=== PATIENT | male | born 1930 | race Caucasian/White ===

== ENCOUNTER 2017-01-14 15:58 | Emergency (ER) | payer OTHER, MEDICARE ==
[2017-01-14 16:09] VITALS: BP 118/52
--- NOTE | 2017-01-14 16:38 | EDM.PDOC ---
ED HPI Skin/Rash - General Chief Complaint: ENT Problem Stated Complaint: RT EAR, STITCHES OUT Time Seen by Provider: 01/14/17 16:15 Source: Reports: Patient, RN, RN notes reviewed History Limitations: Reports: No limitations - History of Present Illness INITIAL COMMENTS - FREE TEXT/NARRATIVE: Patient had skin biopsy yesterday at [facility]. Today after dialysis patient took a nap and woke up with blood all over his face. Denies pain. Symptom Onset Date: 01/14/17 Timing: Reports: still present Location, Skin: Reports: face Severity: mild Known Identified Source: yes Place of Occurrence: home Sick Contact: no Associated Symptoms: Reports: no other symptoms Similar Symptoms Previously: no Recent Medical Care: yes - Related Data Allergies Allergy/AdvReac Type Severity Reaction Status Date / Time No Known Allergies Allergy Verified 01/07/17 23:53 Home Meds: Ambulatory Orders Medication Instructions Recorded Confirmed glipiZIDE [Glucotrol] 5 mg PO BID 07/22/14 01/08/17 Docusate Sodium [Colace] 100 mg PO DAILY 04/15/16 01/08/17 Metoprolol Succinate [Toprol XL 25 mg PO BID 04/15/16 01/08/17 100mg] Tamsulosin [Flomax] 0.4 mg PO DAILY 04/15/16 01/08/17 atorvaSTATin [Lipitor] 20 mg PO BEDTIME 04/15/16 01/08/17 Aspirin [Ecotrin] 81 mg PO DAILY 01/08/17 01/08/17 Furosemide 80 mg PO TID 01/08/17 01/08/17 Sevelamer Carbonate [Renvela] 400 mg PO TIDMEALS 01/08/17 01/08/17 amLODIPine Besylate [Amlodipine 10 mg PO DAILY 01/08/17 01/08/17 Besylate] Past Medical History HEENT History: Reports: Impaired vision Cardiovascular History: Reports: CAD, High cholesterol, Hypertension, PVD Respiratory History: Reports: COPD Genitourinary History: Reports: BPH, Dialysis Endocrine/Metabolic History: Reports: Diabetes, type II, Obesity/BMI 30+ - Infectious Disease History Infectious Disease History: Reports: None - Past Surgical History HEENT Surgical History: Reports: Tonsillectomy Social & Family History - Family History Family Medical History: Noncontributory - Tobacco Use Smoking Status *Q: Former Smoker Years of Tobacco use: 60 Packs/Tins Daily: 0.2 Used Tobacco, but Quit: No Month Tobacco Last Used: october 2016 Second Hand Smoke Exposure: No - Caffeine Use Caffeine Use: Reports: Coffee - Recreational Drug Use Recreational Drug Use: No - Living Situation & Occupation Living situation: Reports: with family Occupation: retired ED ROS GENERAL - Review of Systems Review Of Systems: ROS reveals no pertinent complaints other than HPI. ED EXAM, SKIN/RASH Exam: See Below Exam Limited By: No limitations General Appearance: alert, WD/WN, no apparent distress Eye Exam: bilateral eye: normal inspection Ears: other (1cm surgical incisoin at right pre-auricular face with intact sutures x3. Dried blood. No active bleeding.) Nose: normal inspection, normal mucosa, no blood Throat/Mouth: Normal inspection, Normal lips, Normal teeth, Normal gums, Normal oropharynx, Normal voice, No airway compromise Head: atraumatic Neck: normal inspection, supple, non-tender, full range of motion Respiratory/Chest: no respiratory distress Cardiovascular: normal peripheral pulses, regular rate, rhythm, no edema, no gallop, no JVD, no murmur, no rub Neurological: alert, oriented, CN II-XII intact, normal cognition, normal gait, normal reflexes, no motor/sensory deficits Psychiatric: normal affect, normal mood Course - Vital Signs Last Recorded V/S: Last Vital Signs Temp 36.4 C 01/14/17 16:08 Pulse 78 01/14/17 16:08 Resp 16 01/14/17 16:08 BP 118/52 L 01/14/17 16:08 Pulse Ox 99 01/14/17 16:08 - Re-Assessments/Exams Free Text/Narrative Re-Assessment/Exam: 01/14/17 16:42 The nurse cleansed the wound area and cleansed away the dried blood and then applied a new dressing. The patient's right upper chest CV port dressing was also draining with blood and it was replaced as well. Departure - Departure Time of Disposition: 16:37 Disposition: Home, Self-Care 01 Condition: good Clinical Impression: Postoperative bleeding from incision Instructions: Sutured Wound Care Referrals: Junior Luis MD [Primary Care Provider] - Forms: ED Department Discharge Additional Instructions: Follow your discharge instructions given by your surgeon. Apply firm pressure to site if bleeding returns. Follow up with your surgeon if any further problems.
== END 2017-01-14 16:46 | disposition home or self-care (01) ==
LOC: DL.ED 15:58
DX: L76.22 Postprocedural hemorrhage of skin and subcutaneous tissue following other procedure (principal); I25.10 Atherosclerotic heart disease of native coronary artery without angina pectoris; E78.00 Pure hypercholesterolemia, unspecified; I10 Essential (primary) hypertension; J44.9 Chronic obstructive pulmonary disease, unspecified; E11.9 Type 2 diabetes mellitus without complications; E66.9 Obesity, unspecified; Z98.890 Other specified postprocedural states; Z87.891 Personal history of nicotine dependence
CPT/HCPCS: 99282

== ENCOUNTER 2017-08-11 06:27 | Emergency (ER) | payer MEDICARE ==
[2017-08-11] MEDS ORDERED: Lidocaine 1% 30 ML SDV INJECT ONE (06:38)
[2017-08-11 06:39] VITALS: BP 109/87
[2017-08-11] MEDS ORDERED: Diphtheria,Pertussis(Acell),Tetanus Vaccine 0.5 ML SDV IM ONE (06:43)
[2017-08-11] MEDS ORDERED: Ciprofloxacin 500 MG Tab PO ONE (06:44)
--- NOTE | 2017-08-11 06:44 | EDM.PDOC ---
ED HPI GENERAL MEDICAL PROBLEM - General Chief Complaint: Lower Extremity Injury/Pain Stated Complaint: STEPPED ON FISHING HOOK Time Seen by Provider: 08/11/17 06:37 Source of Information: Reports: Patient History Limitations: Reports: No Limitations - History of Present Illness INITIAL COMMENTS - FREE TEXT/NARRATIVE: 86 yo white male /o fish hook in right foot unknown how it happened. PMHx. 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) Severity: Mild Improves with: Reports: None Worsens with: Reports: None Context: Reports: Activity Associated Symptoms: Reports: No Other Symptoms - Related Data Allergies Allergy/AdvReac Type Severity Reaction Status Date / Time No Known Allergies Allergy Verified 08/11/17 06:31 Home Meds: Home Meds glipiZIDE [Glucotrol] 5 mg PO BID 07/22/14 [History] Docusate Sodium [Colace] 100 mg PO DAILY 04/15/16 [History] Metoprolol Succinate [Toprol XL 100mg] 25 mg PO BID 04/15/16 [History] Tamsulosin [Flomax] 0.4 mg PO DAILY 04/15/16 [History] atorvaSTATin [Lipitor] 20 mg PO BEDTIME 04/15/16 [History] Aspirin [Ecotrin] 81 mg PO DAILY 01/08/17 [History] Furosemide 80 mg PO TID 01/08/17 [History] Sevelamer Carbonate [Renvela] 400 mg PO TIDMEALS 01/08/17 [History] amLODIPine Besylate [Amlodipine Besylate] 10 mg PO DAILY 01/08/17 [History] Past Medical History HEENT History: Reports: Impaired Vision Cardiovascular History: Reports: CAD, High Cholesterol, Hypertension, PVD Respiratory History: Reports: COPD Genitourinary History: Reports: BPH, Dialysis Endocrine/Metabolic History: Reports: Diabetes, Type II, Obesity/BMI 30+ - Infectious Disease History Infectious Disease History: Reports: None - Past Surgical History HEENT Surgical History: Reports: Tonsillectomy Social & Family History - Family History Family Medical History: Noncontributory - Tobacco Use Smoking Status *Q: Former Smoker Years of Tobacco use: 60 Packs/Tins Daily: 0.2 Used Tobacco, but Quit: No Month Tobacco Last Used: october 2016 Second Hand Smoke Exposure: No - Caffeine Use Caffeine Use: Reports: Coffee - Recreational Drug Use Recreational Drug Use: No - Living Situation & Occupation Living situation: Reports: with Family Occupation: Retired Review of Systems - Review of Systems Review Of Systems: See Below Constitutional: Reports: No Symptoms Eyes: Reports: No Symptoms Ears: Reports: No Symptoms Nose: Reports: No Symptoms Mouth/Throat: Reports: No Symptoms Respiratory: Reports: No Symptoms Cardiovascular: Reports: No Symptoms GI/Abdominal: Reports: No Symptoms Genitourinary: Reports: No Symptoms Skin: Reports: Other (fishhook in right plantar surface of foot) Neurological: Reports: Numbness (right foot) Psychiatric: Reports: No Symptoms ED EXAM, GENERAL - Physical Exam Exam: See Below Exam Limited By: No Limitations General Appearance: Alert, No Apparent Distress Eye Exam: Bilateral Eye: EOMI, PERRL Respiratory/Chest: No Respiratory Distress Cardiovascular: Normal Peripheral Pulses Peripheral Pulses: 1+: Dorsalis Pedis (L), Dorsalis Pedis (R) GI/Abdominal: Normal Bowel Sounds Back Exam: Normal Inspection Extremities: Normal Inspection, Normal Range of Motion Neurological: Alert, Oriented, CN II-XII Intact Psychiatric: Normal Affect Skin Exam: Other (fish hook in right plantar surface foot) Lymphatic: No Adenopathy ED TRAUMA EXTREMITY PROCEDURES - Foreign Body Removal Indication:: Fish hook to right foot Consent Obtained: Patient Performing Doctor:: Rolan Beavers Anesthesia Type: Local Findings:: right foot fish hook Complications:: No Departure - Departure Time of Disposition: 06:48 Disposition: Home, Self-Care 01 Condition: Good Clinical Impression: Foreign body in foot, right Qualifiers: Encounter type: initial encounter Qualified Code(s): S90.851A - Superficial foreign body, right foot, initial encounter - Discharge Information Additional Instructions: keep area clean Take the oral antibiotic: CIPRO 500mg BID # 14 Apply antibiotic ointment to wound BID: BACTROBAN OINT. # 22g F/U w/ PCP
== END 2017-08-11 06:55 | disposition home or self-care (01) ==
LOC: DL.ED 06:27
DX: S90.851A Superficial foreign body, right foot, initial encounter (principal); Z79.899 Other long term (current) drug therapy; Z79.82 Long term (current) use of aspirin; Z87.891 Personal history of nicotine dependence; Z23 Encounter for immunization; W45.8XXA Other foreign body or object entering through skin, initial encounter
CPT/HCPCS: 90471; 90715; 99282; A9270; 99283

== ENCOUNTER 2018-03-13 21:16 | Emergency (ER) | payer OTHER, MEDICARE ==
[2018-03-13] MEDS ORDERED: Acetaminophen/HYDROcodone 325-10 MG Tab PO ONE ×2 (21:17)
[2018-03-13] MEDS ORDERED: Acetaminophen/HYDROcodone 325-10 MG Tab ONE ×2 (22:48→22:50)
[2018-03-14 01:57] LABS: CHLORIDE,CL 96 mmol/L (101-111); SODIUM,NA 136 mmol/L (135-145)
== END 2018-03-13 23:23 | disposition home or self-care (01) ==
LOC: DL.ED 21:16
DX: S22.41XA Multiple fractures of ribs, right side, initial encounter for closed fracture (principal); W19.XXXA Unspecified fall, initial encounter
CPT/HCPCS: 36415; 71101; 80053; 85025; 85610; 99283; 99284; A9270

== ENCOUNTER 2018-03-19 12:44 | Emergency (ER) | payer OTHER, MEDICARE ==
[2018-03-19 13:05] VITALS: BP 115/51
[2018-03-19] MEDS ORDERED: Sodium Chloride 0.9% 10 ML Syringe FLUSH PRN (13:31)
[2018-03-19] MEDS ORDERED: Albuterol/Ipratropium 3.0-0.5 MG/3 ML Neb Soln NEB ONE (13:34)
[2018-03-19] MEDS ORDERED: 50% Dextrose in Water 50 ML Syringe IVPUSH ONE (13:43)
--- NOTE | 2018-03-19 16:59 | EDM.PDOC ---
"Scribed by Katelynn Desir 03/19/18 [id number] for Ron Cisneros MD ED HPI GENERAL MEDICAL PROBLEM - General Chief Complaint: Neuro Symptoms/Deficits Stated Complaint: REEBS FRACTURE Time Seen by Provider: 03/19/18 13:19 Source of Information: Reports: Patient, RN, RN Notes Reviewed History Limitations: Reports: Altered Mental Status - History of Present Illness INITIAL COMMENTS - FREE TEXT/NARRATIVE: Patient presented with daughter reporting onset of confusion, altered mental and delirium last evening. Patient was seen here on 03/13/18 diagnosed with multiple right lower rib fractures. He had a full run of dialysis without complications yesterday. Unknown if there have been any fevers. Daughter reports that he has appeared chilled with shivering intermittently in the last 12+ hours. Patient denies any complaints, but is clearly confused and unable to provide any history. Duration: Getting Worse Location: Reports: Generalized Quality: Reports: Ache Severity: Severe Improves with: Reports: None Worsens with: Reports: None Associated Symptoms: Reports: No Other Symptoms left side Pain Score (Numeric/FACES): 5 - Related Data Allergies Allergy/AdvReac Type Severity Reaction Status Date / Time No Known Allergies Allergy Verified 03/19/18 13:08 Home Meds: Home Meds glipiZIDE [Glucotrol] 5 mg PO BID 07/22/14 [History] Docusate Sodium [Colace] 100 mg PO DAILY 04/15/16 [History] Metoprolol Succinate [Toprol XL 100mg] 25 mg PO BID 04/15/16 [History] Tamsulosin [Flomax] 0.4 mg PO DAILY 04/15/16 [History] atorvaSTATin [Lipitor] 20 mg PO BEDTIME 04/15/16 [History] Aspirin [Ecotrin] 81 mg PO DAILY 01/08/17 [History] Furosemide 80 mg PO TID 01/08/17 [History] Sevelamer Carbonate [Renvela] 400 mg PO TIDMEALS 01/08/17 [History] amLODIPine Besylate [Amlodipine Besylate] 10 mg PO DAILY 01/08/17 [History] Past Medical History HEENT History: Reports: Impaired Vision Cardiovascular History: Reports: CAD, High Cholesterol, Hypertension, PVD Respiratory History: Reports: COPD Genitourinary History: Reports: BPH, Chronic Renal Insuffiency, Dialysis Endocrine/Metabolic History: Reports: Diabetes, Type II, Obesity/BMI 30+ - Infectious Disease History Infectious Disease History: Reports: None - Past Surgical History HEENT Surgical History: Reports: Tonsillectomy Social & Family History - Family History Family Medical History: Noncontributory - Tobacco Use Smoking Status *Q: Current Every Day Smoker Years of Tobacco use: 60 Packs/Tins Daily: 0.5 Second Hand Smoke Exposure: No - Caffeine Use Caffeine Use: Reports: Coffee - Recreational Drug Use Recreational Drug Use: No - Living Situation & Occupation Living situation: Reports: with Family Occupation: Retired ED ROS GENERAL - Review of Systems Review Of Systems: ROS reveals no pertinent complaints other than HPI. ED EXAM, GENERAL - Physical Exam Exam: See Below Exam Limited By: Altered Mental Status General Appearance: Lethargic, Other (chronically ill appearing) Nose: Normal Inspection Throat/Mouth: Normal Lips, Normal Voice, No Airway Compromise Head: Atraumatic, Normocephalic Neck: Normal Inspection, Supple, Non-Tender, Full Range of Motion Respiratory/Chest: No Respiratory Distress, No Accessory Muscle Use, Decreased Breath Sounds, Crackles, Rhonchi (right). No: Wheezing Cardiovascular: Regular Rate, Rhythm GI/Abdominal: Normal Bowel Sounds, Soft, No Organomegaly, No Distention. No: Guarding, Rigid, Rebound (Male) Exam: Deferred Rectal (Males) Exam: Deferred Extremities: Non-Tender, Pedal Edema (mild left greater than right). No: Ginny' s Sign Neurological: No Motor/Sensory Deficits (generalized weakness without focal deficit), Confused, Other (oriented to person only) Skin Exam: Warm, Dry, Intact, No Rash EKG INTERPRETATION EKG Date: 03/19/18 Time: 14:00 Rhythm: Other (sinus rhythm) Rate (Beats/Min): 63 [place]: Normal P-Wave: Present QRS: RBBB (and first degree AV block) ST-T: Normal QT: Normal Comparison: No Change Course - Vital Signs Last Recorded V/S: Last Vital Signs Temp 36.8 C 03/19/18 13:04 Pulse 57 L 03/19/18 14:14 Resp 20 03/19/18 13:04 BP 115/51 L 03/19/18 13:04 Pulse Ox 85 L 03/19/18 13:04 - Orders/Labs/Meds Orders: Active Orders 24 hr Category Date Time Status Blood Glucose Check, Bedside [RC] ONETIME Care 03/19/18 13:31 Active Blood Glucose Check, Bedside [RC] ONETIME Care 03/19/18 14:01 Active Blood Glucose Check, Bedside [RC] ONETIME Care 03/19/18 15:27 Active EKG 12 Lead [EKG Documentation Completion] [RC] STAT Care 03/19/18 13:30 Active Peripheral IV Care [RC] . DIRECTED Care 03/19/18 13:31 Active RT Aerosol Therapy [RC] ASDIRECTED Care 03/19/18 13:34 Active AMMONIA VENOUS [CHEM] Stat Lab 03/19/18 14:00 Received CK W CKMB [CHEM] Stat Lab 03/19/18 14:00 Results CULTURE BLOOD [BC] Stat Lab 03/19/18 14:00 Received CULTURE BLOOD [BC] Stat Lab 03/19/18 15:32 Received Sodium Chloride 0.9% [Saline Flush] Med 03/19/18 13:31 Active 10 ml FLUSH ASDIRECTED PRN Blood Culture x2 Reflex Set [OM.PC] Stat Oth 03/19/18 13:30 Ordered Peripheral IV Insertion Adult [OM.PC] Stat Oth 03/19/18 13:30 Ordered Medication Orders Sodium Chloride (Saline Flush) 10 ml FLUSH ASDIRECTED PRN PRN Reason: Keep Vein Open Last Admin: 03/19/18 14:15 Dose: 10 ml Labs: Laboratory Tests 03/19/18 03/19/18 03/19/18 Range/Units 13:41 14:00 14:00 WBC 10.8 H (5.0-10.0) 10^3/uL RBC 3.61 L (4.6-6.2) 10^6/uL Hgb 11.2 L (14.0-18.0) g/dL Hct 34.8 L (40.0-54.0) % MCV 96.4 (80-100) fL MCH 31.0 (27.0-34.0) pg MCHC 32.2 L (33.0-35.0) g/dL Plt Count 166 (150-450) 10^3/uL Neut % (Auto) 61.0 (42.2-75.2) % Lymph % (Auto) 23.3 (20.5-50.1) % [place] % (Auto) 10.9 H (2-8) % Eos % (Auto) 4.7 H (1.0-3.0) % Baso % (Auto) 0.1 (0.0-1.0) % Sodium 137 (135-145) mmol/L Potassium 4.6 (3.6-5.0) mmol/L Chloride 98 L (101-111) mmol/L Carbon Dioxide 31.0 (21.0-31.0) mmol/L Anion Gap 12.6 BUN 22 H (7-18) mg/dL Creatinine 4.8 H D (0.6-1.3) mg/dL Est Cr Clr Drug Dosing 11.62 mL/min Estimated GFR (MDRD) 12 BUN/Creatinine Ratio 4.58 Glucose 52 L (74-105) mg/dL POC Glucose 50 L (83-110) mg/dl Lactic Acid (0.5-2.2) mmol/L Calcium 9.1 (8.4-10.2) mg/dl Total Bilirubin 1.1 H (0.2-1.0) mg/dL AST 29 (10-42) IU/L ALT 22 (10-60) IU/L Alkaline Phosphatase 72 (42-121) IU/L CK-MB (CK-2) (0.4-4.7) ng/mL Troponin I 0.05 H* (0.00-0.02) ng/ml B-Natriuretic Peptide 374 H (0-100) pg/ml Total Protein 6.3 L (6.7-8.2) g/dl Albumin 3.4 (3.2-5.5) g/dl Globulin 2.9 Albumin/Globulin Ratio 1.17 03/19/18 03/19/18 03/19/18 Range/Units 14:00 14:00 14:29 WBC (5.0-10.0) 10^3/uL RBC (4.6-6.2) 10^6/uL Hgb (14.0-18.0) g/dL Hct (40.0-54.0) % MCV (80-100) fL MCH (27.0-34.0) pg MCHC (33.0-35.0) g/dL Plt Count (150-450) 10^3/uL Neut % (Auto) (42.2-75.2) % Lymph % (Auto) (20.5-50.1) % [place] % (Auto) (2-8) % Eos % (Auto) (1.0-3.0) % Baso % (Auto) (0.0-1.0) % Sodium (135-145) mmol/L Potassium (3.6-5.0) mmol/L Chloride (101-111) mmol/L Carbon Dioxide (21.0-31.0) mmol/L Anion Gap BUN (7-18) mg/dL Creatinine (0.6-1.3) mg/dL Est Cr Clr Drug Dosing mL/min Estimated GFR (MDRD) BUN/Creatinine Ratio Glucose (74-105) mg/dL POC Glucose 133 H (83-110) mg/dl Lactic Acid 0.8 (0.5-2.2) mmol/L Calcium (8.4-10.2) mg/dl Total Bilirubin (0.2-1.0) mg/dL AST (10-42) IU/L ALT (10-60) IU/L Alkaline Phosphatase (42-121) IU/L CK-MB (CK-2) 2.40 (0.4-4.7) ng/mL Troponin I (0.00-0.02) ng/ml B-Natriuretic Peptide (0-100) pg/ml Total Protein (6.7-8.2) g/dl Albumin (3.2-5.5) g/dl Globulin Albumin/Globulin Ratio Meds: Medications Generic Name Dose Route Start Last Admin Trade Name Freq PRN Reason Stop Dose Admin Sodium Chloride 10 ml 03/19/18 13:31 03/19/18 14:15 Saline Flush FLUSH 10 ml ASDIRECTED PRN Administration Keep Vein Open Discontinued Medications Generic Name Dose Route Start Last Admin Trade Name Freq PRN Reason Stop Dose Admin Albuterol/Ipratropium 3 ml 03/19/18 13:34 03/19/18 14:13 Duoneb 3.0-0.5 Mg/3 Ml NEB 03/19/18 13:35 3 ml ONETIME ONE Administration Dextrose/Water 50 ml 03/19/18 13:43 03/19/18 14:00 Dextrose 50% In Water IVPUSH 03/19/18 13:44 50 ml ONETIME ONE Administration - Radiology Interpretation Free Text/Narrative:: CT head: No acute intracranial hemorrhage. Progression of moderate small vessel ischemic changes in the supratentorial white matter. 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 See rad report. [facility] [place] [facility] Final Radiology Report Call: [phone] assistance Online chat: [email or web address] Name: EDUARDO GEORGES Age: 87Years M Date: 03/19/2018 SSN: -- : [id number] Study: CT CHEST WO Requesting Physician: RON CISNEROS Images: 286 Addl Studies: Provided Clinical History: Contrast: Without Contrast Medium: Contrast Amount: Contrast Method: Page 1 of 2 EXAM: CT Chest Without Intravenous Contrast CLINICAL HISTORY: 87 years old, male; Signs and symptoms; Other: Right rhonchi, altered mental status, low right rib FX by xray on 03/13/18 TECHNIQUE: Axial computed tomography images of the chest without intravenous contrast. All CT scans at this facility use one or more dose reduction techniques, viz.: automated exposure control; ma/kV adjustment per patient size (including targeted exams where dose is matched to indication; i.e. head); or iterative reconstruction technique. Coronal and sagittal reformatted images were created and reviewed. COMPARISON: CR - (Chest AP, CHEST, Chest AP) 2018-03-13 21:[address] abdomen 06/23/2016. FINDINGS: Lungs: Unremarkable. No mass. No consolidation. Pleural space: Unremarkable. No pneumothorax. No significant effusion. Heart: Unremarkable. No cardiomegaly. No significant pericardial effusion. Bones/joints: There are acute appearing fractures again noted along the lateral margins of the ninth and 10th ribs. Old right eighth rib fracture again noted. No dislocation. Soft tissues: Unremarkable. Vasculature: Incompletely visualized is infrarenal abdominal aortic aneurysm. The visualized portion measures up to 4.9 cm in AP dimension. Lymph nodes: Unremarkable. No enlarged lymph nodes. Gallbladder and bile ducts: The gallbladder is surgically absent. Kidneys and ureters: There is bilateral renal atrophy. IMPRESSION: EDUARDO GEORGES | Final Radiology Report CONFIDENTIALITY STATEMENT This report is intended only for use by the referring physician, and only in accordance with law. If you received this in error, call [phone]. Page 2 of 2 Acute appearing right ninth and 10th rib fractures. No pneumothorax or hemothorax. Incompletely assessed infrarenal abdominal aortic aneurysm again noted. Thank you for allowing us to participate in the care of your patient. Dictated and Authenticated by: Chepe Beltran MD 03/19/2018 3:44 PM Central Time ([place] & [place]) - Re-Assessments/Exams Free Text/Narrative Re-Assessment/Exam: 03/19/18 16:54 Pt woke after blood sugar improved from 50 to >100 and was no longer confused. Pt was hungry and ate a full meal. 03/19/18 16:56 Departure - Departure Time of Disposition: 16:56 Disposition: Home, Self-Care 01 Condition: Fair Clinical Impression: Hypoglycemia associated with type 2 diabetes mellitus Altered mental status Qualifiers: Altered mental status type: unspecified Qualified Code(s): R41.82 - Altered mental status, unspecified - Discharge Information Instructions: Hypoglycemia, [id number] Referrals: PCP,None [Primary Care Provider] - Forms: ED Department Discharge Additional Instructions: Monitor blood sugars closely for the next 1 to 2 days. Return to ER if worse at any time. - My Orders Last 24 Hours: My Active Orders 03/19/18 13:30 EKG 12 Lead [EKG Documentation Completion] [RC] STAT Blood Culture x2 Reflex Set [OM.PC] Stat Peripheral IV Insertion Adult [OM.PC] Stat 03/19/18 13:31 Blood Glucose Check, Bedside [RC] ONETIME Peripheral IV Care [RC] . DIRECTED Sodium Chloride 0.9% [Saline Flush] 10 ml FLUSH ASDIRECTED PRN 03/19/18 13:34 RT Aerosol Therapy [RC] ASDIRECTED 03/19/18 14:00 AMMONIA VENOUS [CHEM] Stat CK W CKMB [CHEM] Stat CULTURE BLOOD [BC] Stat 03/19/18 14:01 Blood Glucose Check, Bedside [RC] ONETIME 03/19/18 15:27 Blood Glucose Check, Bedside [RC] ONETIME 03/19/18 15:32 CULTURE BLOOD [BC] Stat - Assessment/Plan Last 24 Hours: My Active Orders 03/19/18 13:30 EKG 12 Lead [EKG Documentation Completion] [RC] STAT Blood Culture x2 Reflex Set [OM.PC] Stat Peripheral IV Insertion Adult [OM.PC] Stat 03/19/18 13:31 Blood Glucose Check, Bedside [RC] ONETIME Peripheral IV Care [RC] . DIRECTED Sodium Chloride 0.9% [Saline Flush] 10 ml FLUSH ASDIRECTED PRN 03/19/18 13:34 RT Aerosol Therapy [RC] ASDIRECTED 03/19/18 14:00 AMMONIA VENOUS [CHEM] Stat CK W CKMB [CHEM] Stat CULTURE BLOOD [BC] Stat 03/19/18 14:01 Blood Glucose Check, Bedside [RC] ONETIME 03/19/18 15:27 Blood Glucose Check, Bedside [RC] ONETIME 03/19/18 15:32 CULTURE BLOOD [BC] Stat I have read and agree with the documentation that has been completed regarding this visit. By signing this record, I attest that the documentation was completed in my physical presence and is an accurate record of the encounter."
--- NOTE | 2018-03-21 17:42 | EKG ---
03/19/2018 - EDUARDO GEORGES - TIME: 2:00 p.m. FINDINGS: Sinus rhythm at 63, as per my reading. [facility] /[id number]
== END 2018-03-19 17:15 | disposition home or self-care (01) ==
LOC: DL.ED 12:44
DX: E11.649 Type 2 diabetes mellitus with hypoglycemia without coma (principal); E78.00 Pure hypercholesterolemia, unspecified; I10 Essential (primary) hypertension; F17.210 Nicotine dependence, cigarettes, uncomplicated; Z79.899 Other long term (current) drug therapy; Z79.82 Long term (current) use of aspirin
CPT/HCPCS: 36415; 70450; 71250; 80053; 82140; 82550; 82553; 82962; 83605; 83880; 84484; 85025; 87040; 93005; 93010; 94640; 96374; 99285; J7050; 99284; J7060

== ENCOUNTER 2018-05-30 20:43 | Emergency (ER) | payer OTHER, MEDICARE ==
[2018-05-30 21:30] LABS: ANION GAP 15.4; CHLORIDE,CL 96 mmol/L (101-111); SODIUM,NA 139 mmol/L (135-145)
[2018-05-30] MEDS ORDERED: Lidocaine 1% with EPINEPHrine 1:100,000 20 ML MDV INJECT ONE (21:52)
--- NOTE | 2018-05-30 22:01 | EDM.PDOC ---
ED HPI GENERAL MEDICAL PROBLEM - General Chief Complaint: Trauma Stated Complaint: SPLIT HEAD OPEN, FELL Time Seen by Provider: 05/30/18 21:10 Source of Information: Reports: Patient History Limitations: Reports: No Limitations - History of Present Illness INITIAL COMMENTS - FREE TEXT/NARRATIVE: patient comes emergency department today with complaints of a head injury after a fall. Patient relates that he was standing at homeand his knees got very weak and he fell striking his head on a glass table. He did not get knocked out. He is a dialysis patient who dialyzes on a regular basis. Typically after dialysis he feels very weak and it is common for him to fall. Prior to his fall he denied any chest pain shortness of breath difficulty breathing headache dizziness syncope or palpitations. Upon arrival he does complain of a headache. No neck pain or back pain. No chest pain shortness of breath or difficulty breathing. No palpitations or dizziness. No abdominal pain. No nausea or vomiting. No change in the functionality of his upper or lower extremities. No paresthesias in the upper and lower extremity. No loss of bowel or bladder. Team was activated upon arrival due to the mechanism of injury as well as the patient being on anticoagulation therapy. - Related Data Allergies Allergy/AdvReac Type Severity Reaction Status Date / Time No Known Allergies Allergy Verified 05/30/18 21:07 Home Meds: Home Meds glipiZIDE [Glucotrol] 5 mg PO BID 07/22/14 [History] Docusate Sodium [Colace] 100 mg PO DAILY 04/15/16 [History] Metoprolol Succinate [Toprol XL 100mg] 25 mg PO BID 04/15/16 [History] Tamsulosin [Flomax] 0.4 mg PO DAILY 04/15/16 [History] atorvaSTATin [Lipitor] 20 mg PO BEDTIME 04/15/16 [History] Aspirin [Ecotrin] 81 mg PO DAILY 01/08/17 [History] Furosemide 80 mg PO TID 01/08/17 [History] Sevelamer Carbonate [Renvela] 400 mg PO TIDMEALS 01/08/17 [History] amLODIPine Besylate [Amlodipine Besylate] 10 mg PO DAILY 01/08/17 [History] Past Medical History HEENT History: Reports: Impaired Vision Cardiovascular History: Reports: CAD, High Cholesterol, Hypertension, PVD Respiratory History: Reports: COPD Genitourinary History: Reports: BPH, Chronic Renal Insuffiency, Dialysis Endocrine/Metabolic History: Reports: Diabetes, Type II, Obesity/BMI 30+ - Infectious Disease History Infectious Disease History: Reports: None - Past Surgical History HEENT Surgical History: Reports: Tonsillectomy Social & Family History - Family History Family Medical History: Noncontributory - Caffeine Use Caffeine Use: Reports: Coffee - Living Situation & Occupation Living situation: Reports: with Family Occupation: Retired Review of Systems - Review of Systems Review Of Systems: ROS reveals no pertinent complaints other than HPI. ED EXAM, GENERAL - Physical Exam Exam: See Below Exam Limited By: No Limitations General Appearance: Alert, WD/WN, No Apparent Distress Eye Exam: Bilateral Eye: EOMI, Normal Inspection, PERRL Ears: Normal External Exam, Normal Canal, Normal TMs Ear Exam: Bilateral Ear: Auricle Normal, Canal Normal, TM normal Nose: Normal Inspection, Normal Mucosa, No Blood Throat/Mouth: Normal Inspection, Normal Lips Head: Normocephalic, Other (there is a rather large complex flap type laceration on the very cephalad aspect of his head.It is a U shaped laceration that is 3" x 3" x 3" with another 2 inch laceration off of one of the points of the U.there is no bony deformityor crepitus or bony instability. The wound is rather clean.) Neck: Normal Inspection, Supple, Non-Tender. No: Tender Lateral, Tender Midline Respiratory/Chest: No Respiratory Distress, Lungs Clear, No Accessory Muscle Use Cardiovascular: Normal Peripheral Pulses, Regular Rate, Rhythm Peripheral Pulses: 2+: Radial (L), Radial (R), Posterior Tibial (L), Posterior Tibial (R), Dorsalis Pedis (L), Dorsalis Pedis (R) GI/Abdominal: Normal Bowel Sounds, Soft, No Mass Back Exam: Normal Inspection, Full Range of Motion Extremities: Normal Inspection, Normal Capillary Refill, Pedal Edema Neurological: Alert, Oriented, CN II-XII Intact, Normal Cognition, Normal Reflexes, No Motor/Sensory Deficits Psychiatric: Normal Affect, Normal Mood Skin Exam: Warm, Dry, Intact, Normal Color, No Rash ED TRAUMA PROCEDURES - Laceration/Wound Repair [place] Head Lac/Wound Length In cm: 27 Appearance: Subcutaneous, Linear, Clean Distal NVT: Neuro & Vascular Intact Anesthetic Type: Local Local Anesthesia - Lidocaine (Xylocaine): 1% with EPI Local Anesthetic Volume: Other (15) Skin Prep: Chlorhexidine (Hibiciens) Saline Irrigation (cc's): 500 Exploration/Debridement/Repair: Wound Explored, In a Bloodless Field, Explored to Base, Minimal Debridement Closed With: Sutures Suture Size: other (5-0) # of Sutures: 3 Suture Type: Nylon, Running # of Sutures: 5 Repaired With: Vicryl Drain Placement: No Sterile Dressing Applied: Nurse Tetanus Status Addressed: Yes Complications: No Course - Orders/Labs/Meds Orders: Active Orders 24 hr Category Date Time Status Head wo Cont [CT] Urgent Exams 05/30/18 21:11 Taken Labs: Laboratory Tests 05/30/18 05/30/18 05/30/18 Range/Units 21:00 21:00 21:00 WBC 10.7 H (5.0-10.0) 10^3/uL RBC 3.70 L (4.6-6.2) 10^6/uL Hgb 11.1 L (14.0-18.0) g/dL Hct 35.4 L (40.0-54.0) % MCV 95.7 (80-100) fL MCH 30.0 (27.0-34.0) pg MCHC 31.4 L (33.0-35.0) g/dL Plt Count 190 (150-450) 10^3/uL Neut % (Auto) 67.3 (42.2-75.2) % Lymph % (Auto) 19.1 L (20.5-50.1) % Angelina % (Auto) 9.7 H (2-8) % Eos % (Auto) 3.6 H (1.0-3.0) % Baso % (Auto) 0.3 (0.0-1.0) % PT 9.2 (9.0-12.0) SEC INR 0.9 (0.9-1.2) APTT 22.6 (22.0-34.0) SEC Sodium 139 (135-145) mmol/L Potassium 4.4 (3.6-5.0) mmol/L Chloride 96 L (101-111) mmol/L Carbon Dioxide 32.0 H (21.0-31.0) mmol/L Anion Gap 15.4 BUN 15 (7-18) mg/dL Creatinine 4.1 H (0.6-1.3) mg/dL Est Cr Clr Drug Dosing TNP Estimated GFR (MDRD) 14 BUN/Creatinine Ratio 3.65 Glucose 123 H (74-105) mg/dL Calcium 8.9 (8.4-10.2) mg/dl Total Bilirubin 0.8 (0.2-1.0) mg/dL AST 22 (10-42) IU/L ALT 15 (10-60) IU/L Alkaline Phosphatase 54 (42-121) IU/L Total Protein 6.8 (6.7-8.2) g/dl Albumin 3.7 (3.2-5.5) g/dl Globulin 3.1 Albumin/Globulin Ratio 1.19 Ethyl Alcohol < 5 mg/dL Blood Type Gel Antibody Screen 05/30/18 Range/Units 21:00 WBC (5.0-10.0) 10^3/uL RBC (4.6-6.2) 10^6/uL Hgb (14.0-18.0) g/dL Hct (40.0-54.0) % MCV (80-100) fL MCH (27.0-34.0) pg MCHC (33.0-35.0) g/dL Plt Count (150-450) 10^3/uL Neut % (Auto) (42.2-75.2) % Lymph % (Auto) (20.5-50.1) % Angelina % (Auto) (2-8) % Eos % (Auto) (1.0-3.0) % Baso % (Auto) (0.0-1.0) % PT (9.0-12.0) SEC INR (0.9-1.2) APTT (22.0-34.0) SEC Sodium (135-145) mmol/L Potassium (3.6-5.0) mmol/L Chloride (101-111) mmol/L Carbon Dioxide (21.0-31.0) mmol/L Anion Gap BUN (7-18) mg/dL Creatinine (0.6-1.3) mg/dL Est Cr Clr Drug Dosing Estimated GFR (MDRD) BUN/Creatinine Ratio Glucose (74-105) mg/dL Calcium (8.4-10.2) mg/dl Total Bilirubin (0.2-1.0) mg/dL AST (10-42) IU/L ALT (10-60) IU/L Alkaline Phosphatase (42-121) IU/L Total Protein (6.7-8.2) g/dl Albumin (3.2-5.5) g/dl Globulin Albumin/Globulin Ratio Ethyl Alcohol mg/dL Blood Type A POSITIVE Gel Antibody Screen Negative Meds: Medications Discontinued Medications Generic Name Dose Route Start Last Admin Trade Name Natalia PRN Reason Stop Dose Admin Lidocaine HCl 30 ml 05/30/18 22:27 05/30/18 22:25 Xylocaine-Mpf 1% INJECT 05/30/18 22:28 30 ml ONETIME ONE Administration Lidocaine HCl Confirm 05/30/18 22:26 05/31/18 00:42 Xylocaine-Mpf 1% Administered 05/30/18 22:27 Not Given Dose 30 ml .ROUTE .STK-MED ONE Lidocaine/Epinephrine 20 ml 05/30/18 21:52 05/30/18 22:00 Xylocaine 1% With Epinephrine 1:100,000 INJECT 05/30/18 21:53 20 ml ONETIME ONE Administration - Radiology Interpretation Free Text/Narrative:: cT of the head per radiology shows a deep left frontoparietal scalp laceration. There is no underlying skull fracture. Moderate cerebral atrophy and compensatory ventricular enlargement. Old right posterior parietal infarct. No sign of acute intercranial hemorrhage. Old lacunar infarct in the left thalamus. Departure - Departure Time of Disposition: 22:57 Disposition: Home, Self-Care 01 Clinical Impression: Scalp laceration Qualifiers: Encounter type: initial encounter Qualified Code(s): S01.01XA - Laceration without foreign body of scalp, initial encounter Fall Qualifiers: Encounter type: initial encounter Qualified Code(s): W19.XXXA - Unspecified fall, initial encounter Closed head injury Qualifiers: Encounter type: initial encounter Qualified Code(s): S09.90XA - Unspecified injury of head, initial encounter - Discharge Information Instructions: Concussion, Adult, [id number], Laceration Care, Adult, Head Injury, Adult, [id number] Referrals: PCP,Unobtain [Ordering Only Provider] - Forms: ED Department Discharge Additional Instructions: Tylenol as needed for pain. cleanse the scalp laceration twice daily with soap and water. Apply bacitracin and bandage until healed. watch for signs of infection. Sutures out in 7 days. Return emergency department for new or worsening symptoms. Follow-up primary care provider the next 4-6 days. - My Orders Last 24 Hours: My Active Orders 05/30/18 21:11 Head wo Cont [CT] Urgent - Assessment/Plan Last 24 Hours: My Active Orders 05/30/18 21:11 Head wo Cont [CT] Urgent Assessment:: Extensive scalp laceration. Fall Concussion CRF dialysis. Plan: Tylenol as needed for pain. cleanse the scalp laceration twice daily with soap and water. Apply bacitracin and bandage until healed. watch for signs of infection. Sutures out in 7 days. Return emergency department for new or worsening symptoms. Follow-up primary care provider the next 4-6 days.
[2018-05-30] MEDS ORDERED: Lidocaine 1% 30 ML SDV ONE (22:26)
[2018-05-30] MEDS ORDERED: Lidocaine 1% 30 ML SDV INJECT ONE (22:27)
== END 2018-05-30 23:15 | disposition home or self-care (01) ==
LOC: DL.ED 20:43
DX: S09.90XA Unspecified injury of head, initial encounter (principal); S01.01XA Laceration without foreign body of scalp, initial encounter; I12.9 Hypertensive chronic kidney disease with stage 1 through stage 4 chronic kidney disease, or unspecified chronic kidney disease; N18.9 Chronic kidney disease, unspecified; E11.22 Type 2 diabetes mellitus with diabetic chronic kidney disease; E66.9 Obesity, unspecified; Z79.82 Long term (current) use of aspirin; Z79.899 Other long term (current) drug therapy; Z99.2 Dependence on renal dialysis; W01.198A Fall on same level from slipping, tripping and stumbling with subsequent striking against other object, initial encounter
CPT/HCPCS: 12006; 36415; 70450; 80053; 85025; 85610; 85730; 86850; 86900; 86901; 99283; 99284; G0480

== ENCOUNTER 2018-06-11 13:41 | Emergency (ER) | payer OTHER, MEDICARE ==
[2018-06-11] MEDS ORDERED: Bacitracin Oint 1 GM U/D Packet TOP ONE ×2 (13:42→14:27)
[2018-06-11] MEDS ORDERED: Lidocaine 1% 30 ML SDV INJECT ONE ×2 (13:42→14:27)
--- NOTE | 2018-06-11 15:50 | EDM.PDOC ---
"Scribed by Katelynn Desir 06/11/18 1500 for Ron Cisneros MD ED HPI GENERAL MEDICAL PROBLEM - General Chief Complaint: Trauma Stated Complaint: FELL LACERATION ON HEAD Time Seen by Provider: 06/11/18 13:43 Source of Information: Reports: Patient, EMS, EMS Notes Reviewed, RN, RN Notes Reviewed History Limitations: Reports: No Limitations - History of Present Illness INITIAL COMMENTS - FREE TEXT/NARRATIVE: Patient presents to ER from home by private vehicle with complaint of fall with laceration to head, right upper arm, and left index and middle fingers. Denies loss of consciousness. Patient was going from the porch of his house to the lawn and tripped on the bottom step and fell onto the sidewalk. Patient lives with his daughter and son-in-law. His daughter states that patient has a history of frequent falls. Patient takes aspirin and therefore was changed to a trauma chart by the triage nurse. Patient denied neck pain. Patient refused to wear a C-collar. Trauma activation chart time 1343. GCS on arrival was 15. Onset: Today Location: Reports: Head Quality: Reports: Ache Severity: Mild Improves with: Reports: None Worsens with: Reports: None Associated Symptoms: Reports: No Other Symptoms - Related Data Allergies Allergy/AdvReac Type Severity Reaction Status Date / Time No Known Allergies Allergy Verified 05/30/18 21:07 Home Meds: Home Meds glipiZIDE [Glucotrol] 5 mg PO BID 07/22/14 [History] Docusate Sodium [Colace] 100 mg PO DAILY 04/15/16 [History] Metoprolol Succinate [Toprol XL 100mg] 25 mg PO BID 04/15/16 [History] Tamsulosin [Flomax] 0.4 mg PO DAILY 04/15/16 [History] atorvaSTATin [Lipitor] 20 mg PO BEDTIME 04/15/16 [History] Aspirin [Ecotrin] 81 mg PO DAILY 01/08/17 [History] Furosemide 80 mg PO TID 01/08/17 [History] Sevelamer Carbonate [Renvela] 400 mg PO TIDMEALS 01/08/17 [History] amLODIPine Besylate [Amlodipine Besylate] 10 mg PO DAILY 01/08/17 [History] Past Medical History HEENT History: Reports: Impaired Vision Cardiovascular History: Reports: CAD, High Cholesterol, Hypertension, PVD Respiratory History: Reports: COPD Genitourinary History: Reports: BPH, Chronic Renal Insuffiency, Dialysis Endocrine/Metabolic History: Reports: Diabetes, Type II, Obesity/BMI 30+ - Infectious Disease History Infectious Disease History: Reports: None - Past Surgical History HEENT Surgical History: Reports: Tonsillectomy Social & Family History - Family History Family Medical History: Noncontributory - Caffeine Use Caffeine Use: Reports: Coffee - Living Situation & Occupation Living situation: Reports: with Family Occupation: Retired Review of Systems - Review of Systems Review Of Systems: ROS reveals no pertinent complaints other than HPI. ED EXAM, GENERAL - Physical Exam Exam: See Below Free Text/Narrative:: PRIMARY TRAUMA SURVEY: Patient arrives by private vehicle awake, alert and orientated to person, place and month. Patent nasal and oral airways. Spontaneous respirations. Distal pulses intact x4 extremities. No long bone deformities. Full range of motion of all joints. Full range of motion of neck. Neck was nontender (patient refused to wear C-collar). There was a 2cm irregular right parietal scalp laceration,a large superficial skin tear to the right upper lateral arm and deep abrasions to the left distal second and third fingers. No active bleeding. GCS 15 at one hour and at discharge. No focal neurologic deficits. SECONDAY TRAUMA SURVEY FOLLOWS: Exam Limited By: No Limitations General Appearance: Other (frail elderly man in no acute distress) Eye Exam: Bilateral Eye: EOMI, Normal Inspection, PERRL Ears: Normal Canal, Hearing Grossly Normal (chronic stable), Normal TMs, Other ( Large right external ear, contusion with mild soft tissue swelling. Skin is intact. No hemotympanum. No drainage or discharge. Left ear normal to exam. ) Nose: Normal Inspection, Normal Mucosa, No Blood Throat/Mouth: Normal Inspection, Normal Lips, Normal Teeth, Normal Gums, Normal Oropharynx, Normal Voice, No Airway Compromise Head: Normocephalic, Other (right parietal scalp laceration is noted above to depth of subcutaneous tissue. ) Neck: Normal Inspection, Supple, Non-Tender, Full Range of Motion, Other (C- spine cleared by CT scan) Respiratory/Chest: No Respiratory Distress, Lungs Clear, Normal Breath Sounds, No Accessory Muscle Use, Chest Non-Tender Cardiovascular: Regular Rate, Rhythm, No Edema GI/Abdominal: Normal Bowel Sounds, Soft, Non-Tender (Male) Exam: Deferred Rectal (Males) Exam: Deferred Back Exam: Normal Inspection Extremities: Normal Range of Motion, Normal Capillary Refill. No: Joint Swelling Neurological: Alert, Oriented, CN II-XII Intact, Normal Cognition, No Motor/ Sensory Deficits Psychiatric: Normal Mood Skin Exam: Warm, Dry, Normal Color ED TRAUMA PROCEDURES - Laceration/Wound Repair Right Lateral Head Lac/Wound Length In cm: 2 Appearance: Stellate, Irregular, Clean Distal NVT: Neuro & Vascular Intact Anesthetic Type: Local Local Anesthesia - Lidocaine (Xylocaine): 1% Plain Local Anesthetic Volume: 5cc Skin Prep: Chlorhexidine (Hibiciens), Saline, Sterile Drape Saline Irrigation (cc's): 500 Exploration/Debridement/Repair: Wound Explored, In a Bloodless Field, Explored to Base, Minimal Debridement, Moderately Undermined Closed With: Sutures Suture Size: 3-0 # of Sutures: 4 Suture Type: Nylon, Interrupted Drain Placement: No Sterile Dressing Applied: Nurse Tetanus Status Addressed: Yes Complications: No Course - Orders/Labs/Meds Orders: Active Orders 24 hr Category Date Time Status Cervical Spine wo Cont [CT] Stat Exams 06/11/18 13:49 Taken Head wo Cont [CT] Stat Exams 06/11/18 13:48 Ordered Meds: Medications Discontinued Medications Generic Name Dose Route Start Last Admin Trade Name Natalia PRN Reason Stop Dose Admin Bacitracin 1 dose 06/11/18 14:27 06/11/18 14:55 Bacitracin Oint 1 Gm TOP 06/11/18 14:28 Not Given ONETIME ONE Lidocaine HCl 30 ml 06/11/18 14:27 06/11/18 14:55 Xylocaine-Mpf 1% INJECT 06/11/18 14:28 Not Given ONETIME ONE - Radiology Interpretation Free Text/Narrative:: [facility] [place] [facility] Final Radiology Report Call: [phone] assistance Online chat: [email or web address] Name: EDUARDO GEORGES Age: 87Years M Date: 06/11/2018 SSN: -- : [id number] Study: CT HEAD WO Requesting Physician: RON CISNEROS Images: [id number] Addl Studies: Provided Clinical History: Contrast: Without Contrast Medium: Contrast Amount: Contrast Method: Page 1 of 2 EXAM: CT Head Without Intravenous Contrast CLINICAL HISTORY: 87 years old, male; Injury or trauma; Fall; Initial encounter; Blunt trauma ( contusions or hematomas) and laceration; Consciousness not specified; Without residual foreign body; Head , generalized; Injury details: Laceration is 3inches above and posterior to rt ear TECHNIQUE: Axial computed tomography images of the head/brain without intravenous contrast. All CT scans at this facility use at least one of these dose optimization techniques: automated exposure control; mA and/or kV adjustment per patient size (includes targeted exams where dose is matched to clinical indication); or iterative reconstruction. Coronal and sagittal reformatted images were created and reviewed. COMPARISON: CT - Head wo Cont 05/30/2018 9:23 PM; noncontrast head CT 03/19/2018 FINDINGS: Brain: No intracranial hemorrhage, mass, mass effect, or extra-axial fluid collection. No definite evidence for large-artery territory (i.e., cortically-based) acute/early subacute infarct. No hyperdense MCA. Stable encephalomalacia of a chronic cortical and subcortical right posterior parietal infarct. The 1 cm lacunar infarct at the right side of the midbrain (image 12) is not seen on the prior study. The contralateral midbrain 0.4 cm lacunar infarct is probably stable. Stable chronic lacunar infarct in the thalamus, and a tiny lacunar in the posterior limb right internal capsule/ bordering the thalamus is probably chronic. Moderate patchy hypodense white matter change. Cluster of small infarcts in the lower left cerebellar hemisphere is unchanged. Ventricles: No obstructive hydrocephalus. Stable ex vacuo dilatation of the ventricles/generalized cerebral volume loss. The basal cisterns are patent. Bones/joints: The bony calvarium appears in tact; no fracture. EDUARDO GEORGES | Final Radiology Report CONFIDENTIALITY STATEMENT This report is intended only for use by the referring physician, and only in accordance with law. If you received this in error, call [phone]. Page 2 of 2 Soft tissues: Left frontal convexity regional scalp contusion. Right posterior frontal and parietal scalp regional contusion, extending from mid convexity almost to vertex. There is a laceration within this (series 4 image 27) at upper convexity level that extends possibly as deep as the periosteum. No embedded radiopaque foreign body detected. Vasculature: Atherosclerotic calcification of the intracranial carotid arteries. Sinuses: The included paranasal sinuses are predominantly clear. Mastoid air cells: The mastoid air cells and tympanic cavities are clear bilaterally. IMPRESSION: 1. No intracranial hemorrhage. 2. The 1 cm lacunar infarct in the right ventral midbrain is not the prior study of 05/30/2018, suspected to be recent/new since that time. The remainder of the lacunar infarcts appear stable. 3. No additional acute intracranial abnormality. 4. Stable encephalomalacia of the chronic cortically-based right parietal infarct. 5. Cerebral atrophy and chronic microangiopathic ischemic change. 6. Left frontal scalp and right posterior frontal and parietal scalp contusions. Right parietal scalp laceration. Thank you for allowing us to participate in the care of your patient. Dictated and Authenticated by: Shawnee Meneses MD 06/11/2018 2:39 PM Central Time [facility] Final Radiology Report Call: [phone] assistance Online chat: [email or web address] Name: EDUARDO GEORGES Age: 87Years M Date: 06/11/2018 SSN: -- : [id number] Study: CT SPINE CERVICAL WO Requesting Physician: RON CISNEROS Images: [id number] Addl Studies: Provided Clinical History: no prior c-spine cts or xrays Contrast: Without Contrast Medium: Contrast Amount: Contrast Method: Page 1 of 2 EXAM: CT Cervical Spine Without Intravenous Contrast CLINICAL HISTORY: 87 years old, male; Injury or trauma; Fall; Initial encounter; Blunt trauma and laceration; Without foreign body; Injury details: Laceration to head 3inches above and posterior to rt ear; Additional info: No prior c-spine cts or xrays TECHNIQUE: Axial computed tomography images of the cervical spine without intravenous contrast. All CT scans at this facility use at least one of these dose optimization techniques: automated exposure control; mA and/or kV adjustment per patient size (includes targeted exams where dose is matched to clinical indication); or iterative reconstruction. Coronal and sagittal reformatted images were created and reviewed. COMPARISON: No relevant prior studies available. FINDINGS: Imaging extends through the T4 superior endplate. Levoconvex curvature in the cervical spine. No fracture, dislocation, significant subluxation, or paravertebral hematoma. The craniocervical junction and atlantoaxial alignment is within normal range, with the mild asymmetry of the atlantodens interval (coronal image 16) probably chronic ( degenerative change at the right C1-2 articulation) and related to the scoliosis. The vertebral body heights are maintained. No suspicious osteoblastic or osteolytic lesions. Multilevel decreased disc space height. EDUARDO GEORGES | Final Radiology Report CONFIDENTIALITY STATEMENT This report is intended only for use by the referring physician, and only in accordance with law. If you received this in error, call [phone]. Page 2 of 2 Multilevel small disc osteophyte complexes efface the ventral CSF. At C6-7, posterior osseous ridging/disc osteophyte complex likely creates mild to moderate spinal stenosis. Uncovertebral joint hypertrophy/spurring and facet hypertrophy. Bony neural foraminal stenosis on the left C2-3 (mild), C3-4, C4-5, C5-6, C6-7. Bony neural foraminal stenosis on the right is severe at C3-4, C4-5, C5-6, C6-7. Other: Opacification of a few air cells at the left mastoid base, which is asymmetrically mildly sclerotic; the partial opacification could be acute or chronic. The majority of the mastoid air cells on the left are clear, and the right mastoid air cells are clear. No mastoid fracture detected, and the tympanic cavities are clear bilaterally. Centrilobular emphysema, but no acute abnormality detected in the included lung apices. Involution of the thyroid. Bilateral common carotid artery and bifurcation atherosclerotic calcification. A punctate sialolith is detected in each parotid gland, but no inflammatory change. The bilateral parotid and submandibular glands are otherwise unremarkable. IMPRESSION: 1. No fracture or subluxation. 2. Levoconvex scoliosis of the cervical spine. 3. Cervical spondylosis, as above. Mild to moderate spinal stenosis at C5-6. Thank you for allowing us to participate in the care of your patient. Dictated and Authenticated by: Shawnee Meneses MD 06/11/2018 3:[address] Results Date: 06/11/18 Departure - Departure Time of Disposition: 15:08 Disposition: Home, Self-Care 01 Condition: Fair Clinical Impression: Skin tear of right upper extremity, Right-sided lacunar infarction, Multiple lacunar infarcts Scalp laceration Qualifiers: Encounter type: initial encounter Qualified Code(s): S01.01XA - Laceration without foreign body of scalp, initial encounter Abrasion of left index finger Qualifiers: Encounter type: initial encounter Qualified Code(s): S60.411A - Abrasion of left index finger, initial encounter Abrasion of left middle finger Qualifiers: Encounter type: initial encounter Qualified Code(s): S60.413A - Abrasion of left middle finger, initial encounter Fall as cause of accidental injury at home as place of occurrence Qualifiers: Encounter type: initial encounter Qualified Code(s): W19.XXXA - Unspecified fall, initial encounter; Y92.009 - Unspecified place in unspecified non- institutional (private) residence as the place of occurrence of the external cause - Discharge Information Instructions: Skin Tear Care, [id number], Abrasion, Sutured Wound Care Forms: ED Department Discharge Additional Instructions: Follow up in clinic this week for recheck by your doctor. Follow up in clinic for suture removal in 7 to 10 days. - My Orders Last 24 Hours: My Active Orders 06/11/18 13:48 Head wo Cont [CT] Stat 06/11/18 13:49 Cervical Spine wo Cont [CT] Stat - Assessment/Plan Last 24 Hours: My Active Orders 06/11/18 13:48 Head wo Cont [CT] Stat 06/11/18 13:49 Cervical Spine wo Cont [CT] Stat I have read and agree with the documentation that has been completed regarding this visit. By signing this record, I attest that the documentation was completed in my physical presence and is an accurate record of the encounter."
== END 2018-06-11 15:19 | disposition home or self-care (01) ==
LOC: DL.ED 13:41
DX: I63.9 Cerebral infarction, unspecified (principal); S01.01XA Laceration without foreign body of scalp, initial encounter; S41.111A Laceration without foreign body of right upper arm, initial encounter; S60.411A Abrasion of left index finger, initial encounter; S60.413A Abrasion of left middle finger, initial encounter; I12.9 Hypertensive chronic kidney disease with stage 1 through stage 4 chronic kidney disease, or unspecified chronic kidney disease; N18.9 Chronic kidney disease, unspecified; E11.22 Type 2 diabetes mellitus with diabetic chronic kidney disease; E66.9 Obesity, unspecified; Z99.2 Dependence on renal dialysis; Z79.82 Long term (current) use of aspirin; Z79.899 Other long term (current) drug therapy; W01.198A Fall on same level from slipping, tripping and stumbling with subsequent striking against other object, initial encounter
CPT/HCPCS: 12001; 12011; 40830; 70450; 72125; 99285

== ENCOUNTER 2018-10-24 10:47 | Emergency (ER) | payer OTHER, MEDICARE ==
[2018-10-24 11:27] LABS: ANION GAP 19.1
[2018-10-24] MEDS: Sodium Chloride 0.9% 10 ML Syringe FLUSH PRN ×2 (11:43→12:23)
--- NOTE | 2018-10-24 11:48 | CT ---
Clinical history: 88-year-old hypotensive male who is acutely confused. No known trauma. Patient reported to have chronic multi-infarct ischemic disease, severe" for emergency CT scan of the head 28 September 2018 after patient passed out and renal dialysis. Reevaluate please. Scan technique: Volume acquisition of data emergency unenhanced CT scan of the head and brain obtained while the patient was lying supine on the Siemens multi slice scanner [place], [place]. All data archived in the PACS system for storage, reformatting axial/sagittal/coronal planes and study. Interpretation: 1. Severe but symmetric cerebral cortical atrophy with underlying mirror-image normal ventricular system. 2. *Extensive multi-infarct ischemic disease (large lacunar infarct thalamus, on the left and territorial infarct, occipital lobe posteriorly, right cerebral hemisphere) unchanged since 28 September 2018. Tiny infarct brainstem, on the left. 3. Uniformly thick bony calvarium without sign of skull fracture or underlying brain contusion or epidural/subdural hematoma. 4. No new supratentorial or posterior fossa mass lesion. No hydrocephalus. 5 no sign of acute intracerebral/intraventricular/subarachnoid bleed. 6. Cerebellar atrophy. CONCLUSION: Multi-infarct ischemic disease, chronic and relatively unchanged since September 2018 exam. No acute intracranial bleed. No intracranial mass, hydrocephalus or new territorial ischemic infarcts.
[2018-10-24] MEDS ORDERED: cefTRIAXone 500 MG Vial IVPUSH ONE (11:53)
--- NOTE | 2018-10-24 12:59 | EDM.PDOC ---
ED HPI GENERAL MEDICAL PROBLEM - General Chief Complaint: Neuro Symptoms/Deficits Stated Complaint: [place] Time Seen by Provider: 10/24/18 11:05 Source of Information: Reports: Family, RN - History of Present Illness INITIAL COMMENTS - FREE TEXT/NARRATIVE: Patient comes emergency Department today from the [facility] for further evaluation of confusion and hypotension. Very little information is obtained from the patient as he is quite confused. But talking with the patient's caregiver as well as the daughter over the past couple of days the patient is felt more weak. He has had increased urinary frequency. He is a dialysis patient was gone Tuesday. The daughter brought him to the [place] clinic today to get a urinalysis to check for urinary tract infection. He has had multiples of these in the past. He has not had any falls or injury to his head. He has been more confused at home. He's had little appetite. He is much more weak than he typically is. - Related Data Allergies Allergy/AdvReac Type Severity Reaction Status Date / Time No Known Allergies Allergy Verified 09/28/18 07:58 Home Meds: Home Meds glipiZIDE [Glucotrol] 5 mg PO QAM 07/22/14 [History] Docusate Sodium [Colace] 100 mg PO DAILY PRN 04/15/16 [History] Metoprolol Succinate [Toprol XL 100mg] 25 mg PO BID 04/15/16 [History] Tamsulosin [Flomax] 0.4 mg PO DAILY 04/15/16 [History] atorvaSTATin [Lipitor] 40 mg PO BEDTIME 04/15/16 [History] Aspirin [Ecotrin] 81 mg PO DAILY 01/08/17 [History] Furosemide 80 mg PO TID 01/08/17 [History] amLODIPine Besylate [Amlodipine Besylate] 10 mg PO DAILY 01/08/17 [History] Multivitamin [Men's Multi-Vitamin] 1 each PO DAILY 08/25/18 [History] Past Medical History HEENT History: Reports: Impaired Vision Cardiovascular History: Reports: CAD, High Cholesterol, Hypertension, PVD Respiratory History: Reports: COPD Genitourinary History: Reports: BPH, Chronic Renal Insuffiency, Dialysis Endocrine/Metabolic History: Reports: Diabetes, Type II, Obesity/BMI 30+ Hematologic History: Reports: None Immunologic History: Reports: None Oncologic (Cancer) History: Reports: None - Infectious Disease History Infectious Disease History: Reports: None - Past Surgical History HEENT Surgical History: Reports: Tonsillectomy Social & Family History - Family History Family Medical History: Noncontributory - Tobacco Use Smoking Status *Q: Current Every Day Smoker Years of Tobacco use: 70 Packs/Tins Daily: 1 - Caffeine Use Caffeine Use: Reports: None - Recreational Drug Use Recreational Drug Use: No - Living Situation & Occupation Living situation: Reports: with Family Occupation: Retired ED ROS GENERAL - Review of Systems Review Of Systems: Unable To Obtain ED EXAM, NEURO - Physical Exam Exam: See Below Exam Limited By: Altered Mental Status General Appearance: Alert Eye Exam: Bilateral Eye: EOMI, Normal Inspection, PERRL Ears: Normal External Exam. No: Normal TMs (Bilaterally occluded TMs with cerumen.) Nose: Normal Inspection Throat/Mouth: Normal Inspection, Normal Lips, Normal Oropharynx Head Exam: Atraumatic, Normocephalic. No: Facial Swelling, Facial Tenderness, Sinus Tenderness Neck: Normal Inspection, Supple, Non-Tender Respiratory/Chest: No Respiratory Distress, Lungs Clear, Normal Breath Sounds, No Accessory Muscle Use, Chest Non-Tender Cardiovascular: Normal Peripheral Pulses, Regular Rate, Rhythm GI/Abdominal: Normal Bowel Sounds, Soft, Non-Tender, No Distention Neurological: Alert, Normal Dorsiflexion, Difficulty Walking. No: Abnormal Sensation (Patient moves all extremities strong and equal to command. No focal neurological deficits. No pronator drift. No facial droop. Patient's speech is minimally thick but not really slurred.) Back Exam: Normal Inspection Extremities: Normal Inspection, Normal Range of Motion, Normal Capillary Refill Psychiatric: Flat Affect Skin Exam: Dry, Intact, No Rash, Cool, Pallor Course - Vital Signs Last Recorded V/S: Last Vital Signs Temp 37.8 C 10/24/18 17:15 Pulse 83 10/24/18 17:15 Resp 20 10/24/18 17:15 BP 106/38 L 10/24/18 17:15 Pulse Ox 98 10/24/18 17:15 - Orders/Labs/Meds Orders: Active Orders 24 hr Category Date Time Status EKG 12 Lead [EKG Documentation Completion] [RC] URGENT Care 10/24/18 11:10 Active Peripheral IV Care [RC] . DIRECTED Care 10/24/18 11:10 Active CULTURE BLOOD [BC] Stat Lab 10/24/18 10:10 Results CULTURE BLOOD [BC] Stat Lab 10/24/18 10:55 Results CULTURE URINE [RM] Stat Lab 10/24/18 11:15 Received Blood Culture x2 Reflex Set [OM.PC] Stat Oth 10/24/18 11:37 Ordered Peripheral IV Insertion Adult [OM.PC] Stat Oth 10/24/18 11:10 Ordered Labs: Laboratory Tests 10/24/18 10/24/18 10/24/18 Range/Units 10:55 10:55 10:55 WBC 19.2 H (5.0-10.0) 10^3/uL RBC 3.41 L (4.6-6.2) 10^6/uL Hgb 10.5 L (14.0-18.0) g/dL Hct 32.6 L (40.0-54.0) % MCV 95.6 (80-100) fL MCH 30.8 (27.0-34.0) pg MCHC 32.2 L (33.0-35.0) g/dL Plt Count 192 (150-450) 10^3/uL Neut % (Auto) 75.8 H (42.2-75.2) % Lymph % (Auto) 14.4 L (20.5-50.1) % [place] % (Auto) 9.4 H (2-8) % Eos % (Auto) 0.3 L (1.0-3.0) % Baso % (Auto) 0.1 (0.0-1.0) % Sodium 138 (135-145) mmol/L Potassium 4.1 (3.6-5.0) mmol/L Chloride 94 L (101-111) mmol/L Carbon Dioxide 29.0 (21.0-31.0) mmol/L Anion Gap 19.1 BUN 16 (7-18) mg/dL Creatinine 3.9 H (0.6-1.3) mg/dL Est Cr Clr Drug Dosing 12.27 mL/min Estimated GFR (MDRD) 15 BUN/Creatinine Ratio 4.10 Glucose 153 H (74-105) mg/dL POC Glucose 156 H (83-110) mg/dl Calcium 8.2 L (8.4-10.2) mg/dl Total Bilirubin 1.1 H (0.2-1.0) mg/dL AST 35 (10-42) IU/L ALT 23 (10-60) IU/L Alkaline Phosphatase 69 (42-121) IU/L Troponin I 0.50 H* (0.00-0.02) ng/ml C-Reactive Protein (0.0-1.3) mg/dL Total Protein 7.0 (6.7-8.2) g/dl Albumin 3.3 (3.2-5.5) g/dl Globulin 3.7 Albumin/Globulin Ratio 0.89 Urine Color (YELLOW) Urine Appearance (CLEAR) Urine pH (5.0-9.0) Ur Specific [place] (1.005-1.030) Urine Protein (NEGATIVE) Urine Glucose (UA) (NEGATIVE) Urine Ketones (NEGATIVE) Urine Occult Blood (NEGATIVE) Urine Nitrite (NEGATIVE) Urine Bilirubin (NEGATIVE) Urine Urobilinogen (0.2-1.0) mg/dL Ur Leukocyte Esterase (NEGATIVE) Urine RBC /HPF Urine WBC (0-5/HPF) /HPF Ur Epithelial Cells /HPF Urine Bacteria (0-FEW/HPF) /HPF Urine Mucus /LPF 10/24/18 10/24/18 10/24/18 Range/Units 10:55 11:15 17:04 WBC (5.0-10.0) 10^3/uL RBC (4.6-6.2) 10^6/uL Hgb (14.0-18.0) g/dL Hct (40.0-54.0) % MCV (80-100) fL MCH (27.0-34.0) pg MCHC (33.0-35.0) g/dL Plt Count (150-450) 10^3/uL Neut % (Auto) (42.2-75.2) % Lymph % (Auto) (20.5-50.1) % [place] % (Auto) (2-8) % Eos % (Auto) (1.0-3.0) % Baso % (Auto) (0.0-1.0) % Sodium (135-145) mmol/L Potassium (3.6-5.0) mmol/L Chloride (101-111) mmol/L Carbon Dioxide (21.0-31.0) mmol/L Anion Gap BUN (7-18) mg/dL Creatinine (0.6-1.3) mg/dL Est Cr Clr Drug Dosing mL/min Estimated GFR (MDRD) BUN/Creatinine Ratio Glucose (74-105) mg/dL POC Glucose 117 H (83-110) mg/dl Calcium (8.4-10.2) mg/dl Total Bilirubin (0.2-1.0) mg/dL AST (10-42) IU/L ALT (10-60) IU/L Alkaline Phosphatase (42-121) IU/L Troponin I (0.00-0.02) ng/ml C-Reactive Protein 8.6 H (0.0-1.3) mg/dL Total Protein (6.7-8.2) g/dl Albumin (3.2-5.5) g/dl Globulin Albumin/Globulin Ratio Urine Color Yellow (YELLOW) Urine Appearance Turbid (CLEAR) Urine pH 8.5 (5.0-9.0) Ur Specific [place] 1.020 (1.005-1.030) Urine Protein >=300 H (NEGATIVE) Urine Glucose (UA) Negative (NEGATIVE) Urine Ketones Negative (NEGATIVE) Urine Occult Blood Moderate H (NEGATIVE) Urine Nitrite Negative (NEGATIVE) Urine Bilirubin Negative (NEGATIVE) Urine Urobilinogen 0.2 (0.2-1.0) mg/dL Ur Leukocyte Esterase Small H (NEGATIVE) Urine RBC 40-50 H /HPF Urine WBC 50-75 H (0-5/HPF) /HPF Ur Epithelial Cells Moderate H /HPF Urine Bacteria Few (0-FEW/HPF) /HPF Urine Mucus Few H /LPF Meds: Medications Discontinued Medications Generic Name Dose Route Start Last Admin Trade Name Freq PRN Reason Stop Dose Admin Ceftriaxone Sodium 2,000 mg 10/24/18 11:53 10/24/18 12:22 Rocephin IVPUSH 10/24/18 11:54 2,000 mg ONETIME ONE Administration Sodium Chloride 1,000 mls @ 75 mls/hr 10/24/18 13:30 10/24/18 13:34 Normal Saline IV 75 mls/hr ASDIRECTED STEPHIE Administration Sodium Chloride 10 ml 10/24/18 11:10 10/24/18 12:23 Saline Flush FLUSH 10 ml ASDIRECTED PRN Administration Keep Vein Open - Radiology Interpretation Free Text/Narrative:: CT head negative for acute findings. - Re-Assessments/Exams Free Text/Narrative Re-Assessment/Exam: 10/24/18 CT of the head was negative. The patient is not hypotensive in the emergency department. A urinary catheter was placed in and out and his urinalysis clearly shows quite a bit of infectious process. Blood cultures 2 Urine culture pending. His white blood cell count was quite elevated as well as his CRP. Rocephin 2 g IV piggyback. He has no indwelling catheter and uses a fistula for his dialysis. I did speak with the [place] [facility] [place]. They're currently full and do not have any bed status available form. I called and spoke with Dr. Mosquera at [facility]. HPI ER Course findings and concerns were relayed to him verbally over the phone of my concerns of urosepsis without septic shock. He accepted the patient in transfer which will be somewhat delayed as we have quite a few ambulances out at this time and he is hemodynamically stable. I did talk with the patient's daughter as well and she is comfortable with this plan and her questions are answered. He was started on IV fluids due to his sepsis as well. 10/25/18 09:10 Departure - Departure Time of Disposition: 12:58 ([place] [facility] is full was contacted. ) Disposition: DC/Tfer to Acute Hospital 02 Clinical Impression: UTI (urinary tract infection) Qualifiers: Urinary tract infection type: site unspecified Hematuria presence: without hematuria Qualified Code(s): N39.0 - Urinary tract infection, site not specified Sepsis Qualifiers: Sepsis type: sepsis due to unspecified organism Qualified Code(s): A41.9 - Sepsis, unspecified organism - Discharge Information Referrals: PCP,None [Primary Care Provider] - Forms: ED Department Discharge - My Orders Last 24 Hours: My Active Orders 10/24/18 10:10 CULTURE BLOOD [BC] Stat 10/24/18 10:55 CULTURE BLOOD [BC] Stat 10/24/18 11:10 EKG 12 Lead [EKG Documentation Completion] [RC] URGENT Peripheral IV Care [RC] . DIRECTED Peripheral IV Insertion Adult [OM.PC] Stat 10/24/18 11:15 CULTURE URINE [RM] Stat 10/24/18 11:37 Blood Culture x2 Reflex Set [OM.PC] Stat - Assessment/Plan Last 24 Hours: My Active Orders 10/24/18 10:10 CULTURE BLOOD [BC] Stat 10/24/18 10:55 CULTURE BLOOD [BC] Stat 10/24/18 11:10 EKG 12 Lead [EKG Documentation Completion] [RC] URGENT Peripheral IV Care [RC] . DIRECTED Peripheral IV Insertion Adult [OM.PC] Stat 10/24/18 11:15 CULTURE URINE [RM] Stat 10/24/18 11:37 Blood Culture x2 Reflex Set [OM.PC] Stat Assessment:: Urosepsis without septic shock Chronic renal failure on dialysis. Confusion most likely due to the sepsis. Plan: Transfer to [facility] for further care and evaluation
[2018-10-24] MEDS ORDERED: Sodium Chloride 0.9% 1,000 ML IV SCH (13:30)
[2018-10-24 17:15] VITALS: BP 106/38
== END 2018-10-24 18:40 ==
LOC: DL.ED 10:47
DX: A41.9 Sepsis, unspecified organism (principal); N39.0 Urinary tract infection, site not specified; E78.00 Pure hypercholesterolemia, unspecified; J44.9 Chronic obstructive pulmonary disease, unspecified; I12.0 Hypertensive chronic kidney disease with stage 5 chronic kidney disease or end stage renal disease; F17.210 Nicotine dependence, cigarettes, uncomplicated; N18.6 End stage renal disease; Z79.899 Other long term (current) drug therapy; Z79.82 Long term (current) use of aspirin
CPT/HCPCS: 36415; 70450; 80053; 81001; 82962; 84484; 85025; 86140; 87040; 87086; 93005; 96360; 96361; 99285; J0696; J7030; 87186

== ENCOUNTER 2018-11-18 06:55 | Emergency (ER) | payer OTHER, MEDICARE ==
[2018-11-18 07:05] VITALS: BP 118/65
--- NOTE | 2018-11-18 07:21 | EDM.PDOC ---
ED HPI GENERAL MEDICAL PROBLEM - General Chief Complaint: Cardiovascular Problem Stated Complaint: HBP Time Seen by Provider: 11/18/18 07:21 Source of Information: Reports: Patient, Family (daughter), Old Records, RN, RN Notes Reviewed History Limitations: Reports: No Limitations - History of Present Illness INITIAL COMMENTS - FREE TEXT/NARRATIVE: Pt sent from dialysis with report of heart rate in 140s-160s. Pt denies any complaints of chest pain, irreg. or rapid HR. Pt's daughter states that when she woke him this morning he was having a nightmare about being forced and held under water in WWII, which had him agitated until he was awake and realized that he was dreaming. Now pt is awake, alert and oriented. Pt's HR on tele varies from 70's to 140's, mostly running around 100-110. Onset: Unknown/Unsure Duration: Chronic Location: Reports: Generalized Quality: Reports: Other (Denies pain) Improves with: Reports: None Worsens with: Reports: None Associated Symptoms: Reports: No Other Symptoms - Related Data Allergies Allergy/AdvReac Type Severity Reaction Status Date / Time No Known Allergies Allergy Verified 11/18/18 07:05 Home Meds: Home Meds glipiZIDE [Glucotrol] 5 mg PO QAM 07/22/14 [History] Docusate Sodium [Colace] 100 mg PO DAILY PRN 04/15/16 [History] Metoprolol Succinate [Toprol XL 100mg] 25 mg PO BID 04/15/16 [History] Tamsulosin [Flomax] 0.4 mg PO DAILY 04/15/16 [History] atorvaSTATin [Lipitor] 40 mg PO BEDTIME 04/15/16 [History] Aspirin [Ecotrin] 81 mg PO DAILY 01/08/17 [History] Furosemide 80 mg PO TID 01/08/17 [History] amLODIPine Besylate [Amlodipine Besylate] 10 mg PO DAILY 01/08/17 [History] Multivitamin [Men's Multi-Vitamin] 1 each PO DAILY 08/25/18 [History] Past Medical History HEENT History: Reports: Impaired Vision Cardiovascular History: Reports: CAD, High Cholesterol, Hypertension, PVD Respiratory History: Reports: COPD Genitourinary History: Reports: BPH, Chronic Renal Insuffiency, Dialysis Musculoskeletal History: Reports: None Neurological History: Reports: None Psychiatric History: Reports: None Endocrine/Metabolic History: Reports: Diabetes, Type II, Obesity/BMI 30+ Hematologic History: Reports: None Immunologic History: Reports: None Oncologic (Cancer) History: Reports: None Dermatologic History: Reports: None - Infectious Disease History Infectious Disease History: Reports: None - Past Surgical History HEENT Surgical History: Reports: Tonsillectomy Social & Family History - Family History Family Medical History: Noncontributory - Tobacco Use Smoking Status *Q: Current Every Day Smoker Years of Tobacco use: 70 Packs/Tins Daily: 0.5 Second Hand Smoke Exposure: No - Caffeine Use Caffeine Use: Reports: Coffee, Soda - Recreational Drug Use Recreational Drug Use: No - Living Situation & Occupation Living situation: Reports: with Family Occupation: Retired ED ROS GENERAL - Review of Systems Review Of Systems: ROS reveals no pertinent complaints other than HPI. ED EXAM, GENERAL - Physical Exam Exam: See Below Exam Limited By: No Limitations General Appearance: Alert, No Apparent Distress, Other (Well appearing elderly male) Eye Exam: Bilateral Eye: Normal Inspection Nose: Normal Inspection Throat/Mouth: Normal Inspection, Normal Lips, Normal Voice, No Airway Compromise Head: Atraumatic, Normocephalic Neck: Normal Inspection Respiratory/Chest: No Respiratory Distress, Lungs Clear, Chest Non-Tender, Decreased Breath Sounds Cardiovascular: No Edema, Irregularly Irregular GI/Abdominal: Normal Bowel Sounds, Soft, Non-Tender, No Distention Back Exam: Normal Inspection Extremities: Normal Inspection, No Pedal Edema Neurological: Alert, Oriented (to person and place), No Motor/Sensory Deficits Psychiatric: Normal Affect, Normal Mood Skin Exam: Warm, Dry, Intact, Normal Color, No Rash EKG INTERPRETATION EKG Date: 11/18/18 Time: 07:06 Rhythm: A-Fib Rate (Beats/Min): 116 [place]: Normal P-Wave: Absent QRS: RBBB (and LPFB) ST-T: Depressed (Ant-lat.) QT: Normal Comparison: No Change Course - Vital Signs Last Recorded V/S: Last Vital Signs Temp 36.5 C 11/18/18 07:01 Pulse 131 H 11/18/18 07:01 Resp 20 11/18/18 07:01 BP 118/65 11/18/18 07:01 Pulse Ox 92 L 11/18/18 07:01 Departure - Departure Time of Disposition: 07:26 Disposition: Home, Self-Care 01 Condition: Fair Clinical Impression: Chronic atrial fibrillation Instructions: Atrial Fibrillation, [id number] Forms: ED Department Discharge Additional Instructions: Go to dialysis this morning as scheduled. Continue your current medications as prescribed. Return to ER if any further emergent concerns.
== END 2018-11-18 07:30 | disposition home or self-care (01) ==
LOC: DL.ED 06:55
DX: I48.2 Chronic atrial fibrillation (principal); E66.9 Obesity, unspecified; E11.22 Type 2 diabetes mellitus with diabetic chronic kidney disease; I12.9 Hypertensive chronic kidney disease with stage 1 through stage 4 chronic kidney disease, or unspecified chronic kidney disease; N18.9 Chronic kidney disease, unspecified; F17.210 Nicotine dependence, cigarettes, uncomplicated; Z79.899 Other long term (current) drug therapy
CPT/HCPCS: 93005; 99285

== ENCOUNTER 2018-12-11 08:42 | Emergency (ER) | payer OTHER, MEDICARE ==
[2018-12-11 09:10] VITALS: BP 123/99
[2018-12-11] MEDS ORDERED: Sodium Chloride 0.9% 10 ML Syringe FLUSH PRN (09:32)
[2018-12-11] MEDS ORDERED: Acetaminophen 500 MG Tab PO ONE (09:39)
--- NOTE | 2018-12-11 10:19 | EDM.PDOC ---
<Verónica Kern R - Last Filed: 12/11/18 11:53> ED HPI GENERAL MEDICAL PROBLEM - General Chief Complaint: General Stated Complaint: WEAK, FEVER, NOT EATING Time Seen by Provider: 12/11/18 09:10 Source of Information: Reports: Patient, Family, RN, RN Notes Reviewed History Limitations: Reports: No Limitations - History of Present Illness INITIAL COMMENTS - FREE TEXT/NARRATIVE: Patient presents to Emergency department with daughter with complaints of fever , cough, and weakness. He was hospitalized in [place] on 11/18/18 for a UTI and bacteremia. He was treated with IV antibiotics for 12 days. He does Hemodialysis on , , and Tue. He is on home oxygen and has needed to increase it over the last few days. Duration: Week(s): (1), Getting Worse Severity: Moderate Improves with: Reports: None Worsens with: Reports: None Associated Symptoms: Reports: No Other Symptoms, cough w sputum, Fever/Chills, Weakness. Denies: Nausea/Vomiting, Syncope - Related Data Allergies Allergy/AdvReac Type Severity Reaction Status Date / Time No Known Allergies Allergy Verified 12/11/18 09:11 Home Meds: Home Meds glipiZIDE [Glucotrol] 5 mg PO QAM 07/22/14 [History] Metoprolol Succinate [Toprol XL 100mg] 25 mg PO BID 04/15/16 [History] Tamsulosin [Flomax] 0.4 mg PO DAILY 04/15/16 [History] atorvaSTATin [Lipitor] 40 mg PO BEDTIME 04/15/16 [History] Furosemide 80 mg PO TID 01/08/17 [History] Multivitamin [Men's Multi-Vitamin] 1 each PO DAILY 08/25/18 [History] Albuterol/Ipratropium [DuoNeb 3.0-0.5 MG/3 ML] 3 ml NEB Q4H PRN 12/11/18 [ History] Aspirin [Ecotrin] 325 mg PO DAILY 12/11/18 [History] LORazepam 1 mg PO BID PRN 12/11/18 [History] Sevelamer Carbonate 800 mg PO TID 12/11/18 [History] Past Medical History HEENT History: Reports: Impaired Vision Cardiovascular History: Reports: CAD, High Cholesterol, Hypertension, PVD Respiratory History: Reports: COPD Genitourinary History: Reports: BPH, Chronic Renal Insuffiency, Dialysis Musculoskeletal History: Reports: None Neurological History: Reports: None Psychiatric History: Reports: None Endocrine/Metabolic History: Reports: Diabetes, Type II, Obesity/BMI 30+ Hematologic History: Reports: None Immunologic History: Reports: None Oncologic (Cancer) History: Reports: None Dermatologic History: Reports: None - Infectious Disease History Infectious Disease History: Reports: None - Past Surgical History HEENT Surgical History: Reports: Tonsillectomy Social & Family History - Family History Family Medical History: Noncontributory - Tobacco Use Smoking Status *Q: Current Every Day Smoker Years of Tobacco use: 70 Packs/Tins Daily: 0.2 - Caffeine Use Caffeine Use: Reports: Coffee - Recreational Drug Use Recreational Drug Use: No - Living Situation & Occupation Living situation: Reports: with Family Occupation: Retired ED ROS GENERAL - Review of Systems Review Of Systems: See Below Constitutional: Reports: Fever, Weakness HEENT: Reports: No Symptoms Respiratory: Reports: Shortness of Breath, Cough Cardiovascular: Reports: No Symptoms Endocrine: Reports: No Symptoms GI/Abdominal: Reports: No Symptoms : Reports: Other (hemodialysis) Musculoskeletal: Reports: No Symptoms Skin: Reports: No Symptoms Neurological: Reports: No Symptoms Psychiatric: Reports: No Symptoms Hematologic/Lymphatic: Reports: No Symptoms Immunologic: Reports: No Symptoms ED EXAM, GENERAL - Physical Exam Exam: See Below Exam Limited By: No Limitations General Appearance: Alert, WD/WN, No Apparent Distress, Mild Distress Ears: Normal External Exam, Normal Canal, Hearing Grossly Normal, Normal TMs ( fluid behind TM, no erythema) Ear Exam: Bilateral Ear: TM Dull Nose: Normal Inspection, Normal Mucosa, No Blood Throat/Mouth: Normal Inspection, Normal Lips, Normal Teeth, Normal Gums, Normal Oropharynx, Normal Voice, No Airway Compromise Head: Atraumatic, Normocephalic Neck: Normal Inspection, Supple, Non-Tender, Full Range of Motion Respiratory/Chest: Decreased Breath Sounds, Crackles (bases bilaterally), Wheezing (expiratory wheezes) Cardiovascular: Normal Peripheral Pulses, Regular Rate, Rhythm, Other (trace pedal edema, hemodiaylsis fistula to right arm) Peripheral Pulses: 2+: Dorsalis Pedis (L), Dorsalis Pedis (R) GI/Abdominal: Normal Bowel Sounds, Soft, Non-Tender, No Organomegaly, No Distention, No Abnormal Bruit, No Mass (Male) Exam: Deferred Rectal (Males) Exam: Deferred Back Exam: Normal Inspection, Full Range of Motion, NT Extremities: Normal Inspection, Pedal Edema, Increased Warmth Neurological: Alert, Oriented, Normal Cognition, No Motor/Sensory Deficits Psychiatric: Normal Affect, Normal Mood Skin Exam: Warm, Dry, Intact, Normal Color, No Rash, Increased Warmth Lymphatic: No Adenopathy Course - Vital Signs Last Recorded V/S: Last Vital Signs Temp 37.3 C 12/11/18 11:00 Pulse 76 12/11/18 09:02 Resp 20 12/11/18 09:02 BP 123/99 H 12/11/18 09:02 Pulse Ox 94 L 12/11/18 10:28 - Orders/Labs/Meds Orders: Active Orders 24 hr Category Date Time Status Peripheral IV Care [RC] . DIRECTED Care 12/11/18 09:34 Active RT Aerosol Therapy [RC] ASDIRECTED Care 12/11/18 10:28 Active CULTURE BLOOD [BC] Stat Lab 12/11/18 09:50 Received CULTURE BLOOD [BC] Stat Lab 12/11/18 11:08 Received Sodium Chloride 0.9% [Normal Saline] 1,000 ml Med 12/11/18 11:15 Active IV ASDIRECTED Sodium Chloride 0.9% [Saline Flush] Med 12/11/18 09:32 Active 10 ml FLUSH ASDIRECTED PRN Vancomycin 1.25 gm Med 12/11/18 10:39 Active Sodium Chloride 0.9% [Normal Saline] 250 ml IV ONETIME Blood Culture x2 Reflex Set [OM.PC] Stat Oth 12/11/18 09:33 Ordered Peripheral IV Insertion Adult [OM.PC] Stat Oth 12/11/18 09:33 Ordered Medication Orders Vancomycin HCl 1.25 gm/ Sodium (Chloride) 250 mls @ 167 mls/hr IV ONETIME ONE Stop: 12/11/18 12:08 Sodium Chloride (Normal Saline) 1,000 mls @ 100 mls/hr IV ASDIRECTED STEPHIE Last Admin: 12/11/18 11:27 Dose: 100 mls/hr Sodium Chloride (Saline Flush) 10 ml FLUSH ASDIRECTED PRN PRN Reason: Keep Vein Open Last Admin: 12/11/18 09:54 Dose: 10 ml Labs: Laboratory Tests 12/11/18 12/11/18 12/11/18 Range/Units 09:50 09:50 09:50 WBC 11.1 H (5.0-10.0) 10^3/uL RBC 3.32 L (4.6-6.2) 10^6/uL Hgb 10.3 L (14.0-18.0) g/dL Hct 33.3 L (40.0-54.0) % MCV 100.3 H D (80-100) fL MCH 31.0 (27.0-34.0) pg MCHC 30.9 L (33.0-35.0) g/dL Plt Count 173 (150-450) 10^3/uL Neut % (Auto) 86.4 H (42.2-75.2) % Lymph % (Auto) 5.7 L (20.5-50.1) % [place] % (Auto) 7.6 (2-8) % Eos % (Auto) 0.1 L (1.0-3.0) % Baso % (Auto) 0.2 (0.0-1.0) % Sodium 141 (135-145) mmol/L Potassium 4.5 (3.6-5.0) mmol/L Chloride 102 (101-111) mmol/L Carbon Dioxide 30.0 (21.0-31.0) mmol/L Anion Gap 13.5 BUN 31 H (7-18) mg/dL Creatinine 5.9 H D (0.6-1.3) mg/dL Est Cr Clr Drug Dosing 9.28 mL/min Estimated GFR (MDRD) 9 BUN/Creatinine Ratio 5.25 Glucose 126 H (74-105) mg/dL Lactic Acid 1.4 (0.5-2.2) mmol/L Calcium 8.7 (8.4-10.2) mg/dl Total Bilirubin 1.1 H (0.2-1.0) mg/dL AST 24 (10-42) IU/L ALT 22 (10-60) IU/L Alkaline Phosphatase 52 (42-121) IU/L C-Reactive Protein (0.0-1.3) mg/dL Total Protein 5.6 L (6.7-8.2) g/dl Albumin 2.9 L (3.2-5.5) g/dl Globulin 2.7 Albumin/Globulin Ratio 1.07 Urine Color (YELLOW) Urine Appearance (CLEAR) Urine pH (5.0-9.0) Ur Specific [place] (1.005-1.030) Urine Protein (NEGATIVE) Urine Glucose (UA) (NEGATIVE) Urine Ketones (NEGATIVE) Urine Occult Blood (NEGATIVE) Urine Nitrite (NEGATIVE) Urine Bilirubin (NEGATIVE) Urine Urobilinogen (0.2-1.0) mg/dL Ur Leukocyte Esterase (NEGATIVE) Urine RBC /HPF Urine WBC (0-5/HPF) /HPF Ur Epithelial Cells /HPF Amorphous Sediment (0/HPF) /HPF Urine Bacteria (0-FEW/HPF) /HPF Urine Mucus /LPF 12/11/18 12/11/18 Range/Units 09:50 10:13 WBC (5.0-10.0) 10^3/uL RBC (4.6-6.2) 10^6/uL Hgb (14.0-18.0) g/dL Hct (40.0-54.0) % MCV (80-100) fL MCH (27.0-34.0) pg MCHC (33.0-35.0) g/dL Plt Count (150-450) 10^3/uL Neut % (Auto) (42.2-75.2) % Lymph % (Auto) (20.5-50.1) % Cooper % (Auto) (2-8) % Eos % (Auto) (1.0-3.0) % Baso % (Auto) (0.0-1.0) % Sodium (135-145) mmol/L Potassium (3.6-5.0) mmol/L Chloride (101-111) mmol/L Carbon Dioxide (21.0-31.0) mmol/L Anion Gap BUN (7-18) mg/dL Creatinine (0.6-1.3) mg/dL Est Cr Clr Drug Dosing mL/min Estimated GFR (MDRD) BUN/Creatinine Ratio Glucose (74-105) mg/dL Lactic Acid (0.5-2.2) mmol/L Calcium (8.4-10.2) mg/dl Total Bilirubin (0.2-1.0) mg/dL AST (10-42) IU/L ALT (10-60) IU/L Alkaline Phosphatase (42-121) IU/L C-Reactive Protein 2.3 H (0.0-1.3) mg/dL Total Protein (6.7-8.2) g/dl Albumin (3.2-5.5) g/dl Globulin Albumin/Globulin Ratio Urine Color Yellow (YELLOW) Urine Appearance Slightly cloudy (CLEAR) Urine pH 8.5 (5.0-9.0) Ur Specific [place] 1.020 (1.005-1.030) Urine Protein 100 H (NEGATIVE) Urine Glucose (UA) Negative (NEGATIVE) Urine Ketones Negative (NEGATIVE) Urine Occult Blood Negative (NEGATIVE) Urine Nitrite Negative (NEGATIVE) Urine Bilirubin Negative (NEGATIVE) Urine Urobilinogen 0.2 (0.2-1.0) mg/dL Ur Leukocyte Esterase Negative (NEGATIVE) Urine RBC 0-5 /HPF Urine WBC 0-5 (0-5/HPF) /HPF Ur Epithelial Cells Rare /HPF Amorphous Sediment Few (0/HPF) /HPF Urine Bacteria Many H (0-FEW/HPF) /HPF Urine Mucus Rare /LPF Meds: Medications Generic Name Dose Route Start Last Admin Trade Name Freq PRN Reason Stop Dose Admin Vancomycin HCl 1.25 gm/ Sodium 250 mls @ 167 mls/hr 12/11/18 10:39 Chloride IV 12/11/18 12:08 ONETIME ONE Sodium Chloride 1,000 mls @ 100 mls/hr 12/11/18 11:15 12/11/18 11:27 Normal Saline IV 100 mls/hr ASDIRECTED STEPHIE Administration Sodium Chloride 10 ml 12/11/18 09:32 12/11/18 09:54 Saline Flush FLUSH 10 ml ASDIRECTED PRN Administration Keep Vein Open Discontinued Medications Generic Name Dose Route Start Last Admin Trade Name Freq PRN Reason Stop Dose Admin Acetaminophen 1,000 mg 12/11/18 09:39 12/11/18 09:54 Tylenol Extra Strength PO 12/11/18 09:40 1,000 mg ONETIME ONE Administration Albuterol/Ipratropium 3 ml 12/11/18 10:28 12/11/18 10:33 Duoneb 3.0-0.5 Mg/3 Ml NEB 12/11/18 10:29 3 ml ONETIME ONE Administration Piperacillin Sod/Tazobactam 50 mls @ 100 mls/hr 12/11/18 10:39 12/11/18 11:32 Sod 2.25 gm/ Sodium Chloride IV 12/11/18 11:08 100 mls/hr ONETIME ONE Administration Departure - Departure Disposition: DC/Tfer to [facility] 02 Clinical Impression: Pneumonia, Hypoxemia COPD (chronic obstructive pulmonary disease) Qualifiers: COPD type: unspecified COPD Qualified Code(s): J44.9 - Chronic obstructive pulmonary disease, unspecified Renal failure Qualifiers: Renal failure chronicity: chronic Chronic kidney disease stage: on chronic dialysis Qualified Code(s): N18.6 - End stage renal disease; Z99.2 - Dependence on renal dialysis - Discharge Information Forms: ED Department Discharge - My Orders Last 24 Hours: My Active Orders 12/11/18 09:32 Sodium Chloride 0.9% [Saline Flush] 10 ml FLUSH ASDIRECTED PRN 12/11/18 09:33 Blood Culture x2 Reflex Set [OM.PC] Stat Peripheral IV Insertion Adult [OM.PC] Stat 12/11/18 09:34 Peripheral IV Care [RC] . DIRECTED 12/11/18 09:50 CULTURE BLOOD [BC] Stat 12/11/18 10:28 RT Aerosol Therapy [RC] ASDIRECTED 12/11/18 10:39 Vancomycin 1.25 gm Sodium Chloride 0.9% [Normal Saline] 250 ml IV ONETIME 12/11/18 11:08 CULTURE BLOOD [BC] Stat 12/11/18 11:15 Sodium Chloride 0.9% [Normal Saline] 1,000 ml IV ASDIRECTED - Assessment/Plan Last 24 Hours: My Active Orders 12/11/18 09:32 Sodium Chloride 0.9% [Saline Flush] 10 ml FLUSH ASDIRECTED PRN 12/11/18 09:33 Blood Culture x2 Reflex Set [OM.PC] Stat Peripheral IV Insertion Adult [OM.PC] Stat 12/11/18 09:34 Peripheral IV Care [RC] . DIRECTED 12/11/18 09:50 CULTURE BLOOD [BC] Stat 12/11/18 10:28 RT Aerosol Therapy [RC] ASDIRECTED 12/11/18 10:39 Vancomycin 1.25 gm Sodium Chloride 0.9% [Normal Saline] 250 ml IV ONETIME 12/11/18 11:08 CULTURE BLOOD [BC] Stat 12/11/18 11:15 Sodium Chloride 0.9% [Normal Saline] 1,000 ml IV ASDIRECTED <Jimmie Hare - Last Filed: 12/11/18 12:16> ED HPI GENERAL MEDICAL PROBLEM - History of Present Illness INITIAL COMMENTS - FREE TEXT/NARRATIVE: Patient lives at home with his daughter who brings him in today. This patient is well-known to myself as well as emergency department for recurrent infections primarily as urinary tract infection. He denies any headache confusion recent falls. ED EXAM, GENERAL - Physical Exam Free Text/Narrative:: Patient alerts easily to verbal. There is no confusion. He is able to speak in full sentences although he has a quite congested cough. He does not appear dyspneic. General Appearance: No: Mild Distress Respiratory/Chest: Crackles, Rhonchi (Left lower lobe.), Wheezing Extremities: Pedal Edema (equal bilaterally trace) Course - Re-Assessments/Exams Free Text/Narrative Re-Assessment/Exam: 12/11/18 12:04 This patient was seen in tandem with the nurse practitioner. I was present during the physical evaluation plan of care and disposition. I did also physically evaluate the patient myself. I agree with the plan of care and disposition on this patient. Sputum culture pending. Culture 2 pending. Influence a negative. urinalysis negative. Chest x-ray shows a left lower lobe pneumonia. With the patient's comorbidities as well as recent hospitalization we'll treat him for hospital-acquired pneumonia to include vancomycin and Zosyn these medications were renally dosed. I called and spoke with Dr. Carey at [facility] [place]. HPI ER COURSE findings and concerns were relayed to him verbally over the phone. His questions were answered and he accepted the patient in transfer at this time with no new orders. Family and patient are comfortable with the plan of care and disposition. Departure - Departure Time of Disposition: 10:58 - Assessment/Plan Assessment:: LLL pneumonia, recent hospitalization multiple co-morbidities hospital acquired most likely. Hypoxia COPD exacerbation CRF on dialysis Plan: Transfer to the [facility] in [place] for further care evaluation and management.
[2018-12-11] MEDS ORDERED: Albuterol/Ipratropium 3.0-0.5 MG/3 ML Neb Soln NEB ONE (10:28)
[2018-12-11 10:34] LABS: ANION GAP 13.5
[2018-12-11] MEDS ORDERED: Piperacillin/Tazobactam 2.25 GM in Sodium Chloride 0.9% 50 ML IV ONE (10:39)
[2018-12-11] MEDS ORDERED: Sodium Chloride 0.9% 1,000 ML IV SCH (11:15)
== END 2018-12-11 12:10 ==
LOC: DL.ED 08:42
DX: J18.1 Lobar pneumonia, unspecified organism (principal); J44.1 Chronic obstructive pulmonary disease with (acute) exacerbation; I12.0 Hypertensive chronic kidney disease with stage 5 chronic kidney disease or end stage renal disease; E11.22 Type 2 diabetes mellitus with diabetic chronic kidney disease; N18.6 End stage renal disease; F17.210 Nicotine dependence, cigarettes, uncomplicated; I25.10 Atherosclerotic heart disease of native coronary artery without angina pectoris; E78.00 Pure hypercholesterolemia, unspecified; Z99.2 Dependence on renal dialysis; Z79.899 Other long term (current) drug therapy; Z79.84 Long term (current) use of oral hypoglycemic drugs
CPT/HCPCS: 36415; 71045; 80053; 81001; 83605; 85025; 86140; 87040; 87804; 94640; 96365; 96368; 96375; 99285; A9270; J2543; J3370; J7030; J7050; J7620-GY

== ENCOUNTER 2019-01-20 13:55 | Observation (INO) | payer MEDICARE, OTHER ==
[2019-01-20] MEDS ORDERED: Sodium Chloride 0.9% 10 ML Syringe FLUSH PRN (14:17)
[2019-01-20] MEDS ORDERED: Lactated Ringers 1,000 ML IV ONE (14:18)
[2019-01-20] MEDS ORDERED: Diltiazem 25 MG/5 ML SDV IVPUSH ONE (14:21)
[2019-01-20 14:35] LABS: ANION GAP 19.5
--- NOTE | 2019-01-20 14:38 | EDM.PDOC ---
ED HPI GENERAL MEDICAL PROBLEM - General Chief Complaint: Cardiovascular Problem Stated Complaint: ambulance Time Seen by Provider: 01/20/19 13:55 Source of Information: Reports: Patient, EMS, EMS Notes Reviewed, Family, RN, RN Notes Reviewed History Limitations: Reports: No Limitations - History of Present Illness INITIAL COMMENTS - FREE TEXT/NARRATIVE: Pt to ER per [facility] with c/o chest pain, SOB, generalized not feeling well. Patient states the pain began suddenly about 1/2 hour to 1 hour ago. He states he had dialysis this morning. He states hx of diabetes. Patient unsure if dx of CHF. Onset: Today, Sudden Duration: Constant, Getting Worse Location: Reports: Chest Quality: Reports: Pressure Severity: Moderate Improves with: Reports: None Worsens with: Reports: None Associated Symptoms: Reports: Shortness of Breath Middle Chest Pain Score (Numeric/FACES): 5 - Related Data Allergies Allergy/AdvReac Type Severity Reaction Status Date / Time No Known Allergies Allergy Verified 01/20/19 14:13 Home Meds: Home Meds glipiZIDE [Glucotrol] 5 mg PO QAM 07/22/14 [History] Metoprolol Succinate [Toprol XL 100mg] 25 mg PO BID 04/15/16 [History] Tamsulosin [Flomax] 0.4 mg PO DAILY 04/15/16 [History] atorvaSTATin [Lipitor] 40 mg PO BEDTIME 04/15/16 [History] Furosemide 80 mg PO TID 01/08/17 [History] Multivitamin [Men's Multi-Vitamin] 1 each PO DAILY 08/25/18 [History] Albuterol/Ipratropium [DuoNeb 3.0-0.5 MG/3 ML] 3 ml NEB Q4H PRN 12/11/18 [ History] Aspirin [Ecotrin] 325 mg PO DAILY 12/11/18 [History] LORazepam 1 mg PO BID PRN 12/11/18 [History] Sevelamer Carbonate 800 mg PO TID 12/11/18 [History] Past Medical History HEENT History: Reports: Impaired Vision Cardiovascular History: Reports: CAD, High Cholesterol, Hypertension, PVD Respiratory History: Reports: COPD Genitourinary History: Reports: BPH, Chronic Renal Insuffiency, Dialysis Musculoskeletal History: Reports: None Neurological History: Reports: None Psychiatric History: Reports: None Endocrine/Metabolic History: Reports: Diabetes, Type II, Obesity/BMI 30+ Hematologic History: Reports: None Immunologic History: Reports: None Oncologic (Cancer) History: Reports: None Dermatologic History: Reports: None - Infectious Disease History Infectious Disease History: Reports: None - Past Surgical History HEENT Surgical History: Reports: Tonsillectomy Social & Family History - Family History Family Medical History: Noncontributory - Tobacco Use Smoking Status *Q: Current Every Day Smoker Years of Tobacco use: 60 Packs/Tins Daily: 0.2 - Caffeine Use Caffeine Use: Reports: Coffee - Recreational Drug Use Recreational Drug Use: No - Living Situation & Occupation Living situation: Reports: with Family Occupation: Retired ED ROS GENERAL - Review of Systems Review Of Systems: ROS reveals no pertinent complaints other than HPI. ED EXAM, GENERAL - Physical Exam Exam: See Below Exam Limited By: No Limitations General Appearance: Alert, WD/WN, Moderate Distress Eye Exam: Bilateral Eye: EOMI, Normal Inspection Ears: Normal External Exam, Hearing Grossly Normal Nose: Normal Inspection Throat/Mouth: Normal Inspection, Normal Voice, No Airway Compromise Head: Atraumatic, Normocephalic Neck: Normal Inspection, Supple, Non-Tender, Full Range of Motion Cardiovascular: No Edema, No Gallop, No JVD, No Murmur, No Rub, Tachycardia Peripheral Pulses: 1+: Radial (L), Radial (R) GI/Abdominal: Normal Bowel Sounds, Soft, Non-Tender, Distended (Male) Exam: Deferred Rectal (Males) Exam: Deferred Back Exam: Normal Inspection, Decreased Range of Motion Extremities: Normal Inspection, Non-Tender, No Pedal Edema, Normal Capillary Refill, Limited Range of Motion Neurological: Alert, Oriented, CN II-XII Intact, Normal Cognition, Normal Gait, Normal Reflexes, No Motor/Sensory Deficits Psychiatric: Anxious Skin Exam: Warm, Dry, Intact, Normal Color, No Rash Lymphatic: No Adenopathy Course - Vital Signs Last Recorded V/S: Last Vital Signs Temp 96.5 F 01/20/19 13:55 Pulse 190 H 01/20/19 13:55 Resp 28 H 01/20/19 13:55 BP 76/47 L 01/20/19 13:55 Pulse Ox 91 L 01/20/19 13:55 - Orders/Labs/Meds Orders: Active Orders 24 hr Category Date Time Status EKG 12 Lead [EKG Documentation Completion] [RC] STAT Care 01/20/19 14:15 Active EKG 12 Lead [EKG Documentation Completion] [RC] STAT Care 01/20/19 14:36 Active Peripheral IV Care [RC] . DIRECTED Care 01/20/19 14:17 Active Sodium Chloride 0.9% [Saline Flush] Med 01/20/19 14:17 Active 10 ml FLUSH ASDIRECTED PRN Peripheral IV Insertion Adult [OM.PC] Stat Oth 01/20/19 14:17 Ordered Medication Orders Sodium Chloride (Saline Flush) 10 ml FLUSH ASDIRECTED PRN PRN Reason: Keep Vein Open Last Admin: 01/20/19 14:22 Dose: 10 ml Labs: Laboratory Tests 01/20/19 01/20/19 01/20/19 Range/Units 14:04 14:04 14:35 WBC 9.8 (5.0-10.0) 10^3/uL RBC 3.77 L (4.6-6.2) 10^6/uL Hgb 11.7 L (14.0-18.0) g/dL Hct 36.7 L (40.0-54.0) % MCV 97.3 D (80-100) fL MCH 31.0 (27.0-34.0) pg MCHC 31.9 L (33.0-35.0) g/dL Plt Count 184 (150-450) 10^3/uL Neut % (Auto) 61.8 (42.2-75.2) % Lymph % (Auto) 24.5 (20.5-50.1) % Keith % (Auto) 10.0 H (2-8) % Eos % (Auto) 3.6 H (1.0-3.0) % Baso % (Auto) 0.1 (0.0-1.0) % Sodium 137 (135-145) mmol/L Potassium 4.5 (3.6-5.0) mmol/L Chloride 94 L (101-111) mmol/L Carbon Dioxide 28.0 (21.0-31.0) mmol/L Anion Gap 19.5 BUN 14 (7-18) mg/dL Creatinine 3.7 H D (0.6-1.3) mg/dL Est Cr Clr Drug Dosing 14.80 mL/min Estimated GFR (MDRD) 16 BUN/Creatinine Ratio 3.78 Glucose 235 H (74-105) mg/dL POC Glucose 246 H (83-110) mg/dl Calcium 8.5 (8.4-10.2) mg/dl Magnesium 1.6 L (1.8-2.5) mg/dL Total Bilirubin 0.7 (0.2-1.0) mg/dL AST 33 (10-42) IU/L ALT 15 (10-60) IU/L Alkaline Phosphatase 59 (42-121) IU/L Troponin I 0.10 H* (0.00-0.02) ng/ml B-Natriuretic Peptide 3930 H (0-100) pg/ml Total Protein 6.4 L (6.7-8.2) g/dl Albumin 3.4 (3.2-5.5) g/dl Globulin 3.0 Albumin/Globulin Ratio 1.13 Urine Color (YELLOW) Urine Appearance (CLEAR) Urine pH (5.0-9.0) Ur Specific [place] (1.005-1.030) Urine Protein (NEGATIVE) Urine Glucose (UA) (NEGATIVE) Urine Ketones (NEGATIVE) Urine Occult Blood (NEGATIVE) Urine Nitrite (NEGATIVE) Urine Bilirubin (NEGATIVE) Urine Urobilinogen (0.2-1.0) mg/dL Ur Leukocyte Esterase (NEGATIVE) Urine RBC /HPF Urine WBC (0-5/HPF) /HPF Ur Epithelial Cells /HPF Urine Bacteria (0-FEW/HPF) /HPF Hyaline Casts /LPF Fine Granular Casts (0/LPF) /LPF Urine Mucus /LPF 01/20/19 Range/Units 14:50 WBC (5.0-10.0) 10^3/uL RBC (4.6-6.2) 10^6/uL Hgb (14.0-18.0) g/dL Hct (40.0-54.0) % MCV (80-100) fL MCH (27.0-34.0) pg MCHC (33.0-35.0) g/dL Plt Count (150-450) 10^3/uL Neut % (Auto) (42.2-75.2) % Lymph % (Auto) (20.5-50.1) % Keith % (Auto) (2-8) % Eos % (Auto) (1.0-3.0) % Baso % (Auto) (0.0-1.0) % Sodium (135-145) mmol/L Potassium (3.6-5.0) mmol/L Chloride (101-111) mmol/L Carbon Dioxide (21.0-31.0) mmol/L Anion Gap BUN (7-18) mg/dL Creatinine (0.6-1.3) mg/dL Est Cr Clr Drug Dosing mL/min Estimated GFR (MDRD) BUN/Creatinine Ratio Glucose (74-105) mg/dL POC Glucose (83-110) mg/dl Calcium (8.4-10.2) mg/dl Magnesium (1.8-2.5) mg/dL Total Bilirubin (0.2-1.0) mg/dL AST (10-42) IU/L ALT (10-60) IU/L Alkaline Phosphatase (42-121) IU/L Troponin I (0.00-0.02) ng/ml B-Natriuretic Peptide (0-100) pg/ml Total Protein (6.7-8.2) g/dl Albumin (3.2-5.5) g/dl Globulin Albumin/Globulin Ratio Urine Color Yellow (YELLOW) Urine Appearance Slightly cloudy (CLEAR) Urine pH 8.5 (5.0-9.0) Ur Specific [place] 1.015 (1.005-1.030) Urine Protein >=300 H (NEGATIVE) Urine Glucose (UA) 100 H (NEGATIVE) Urine Ketones Negative (NEGATIVE) Urine Occult Blood Negative (NEGATIVE) Urine Nitrite Negative (NEGATIVE) Urine Bilirubin Negative (NEGATIVE) Urine Urobilinogen 0.2 (0.2-1.0) mg/dL Ur Leukocyte Esterase Negative (NEGATIVE) Urine RBC 0-5 /HPF Urine WBC 0-5 (0-5/HPF) /HPF Ur Epithelial Cells Many H /HPF Urine Bacteria Rare (0-FEW/HPF) /HPF Hyaline Casts Moderate H /LPF Fine Granular Casts Few H (0/LPF) /LPF Urine Mucus Few H /LPF Meds: Medications Generic Name Dose Route Start Last Admin Trade Name Freq PRN Reason Stop Dose Admin Sodium Chloride 10 ml 01/20/19 14:17 01/20/19 14:22 Saline Flush FLUSH 10 ml ASDIRECTED PRN Administration Keep Vein Open Discontinued Medications Generic Name Dose Route Start Last Admin Trade Name Natalia PRN Reason Stop Dose Admin Diltiazem HCl 20 mg 01/20/19 14:21 01/20/19 14:24 Diltiazem IVPUSH 01/20/19 14:22 20 mg ONETIME ONE Administration Furosemide 80 mg 01/20/19 15:22 01/20/19 15:28 Lasix IVPUSH 01/20/19 15:23 80 mg NOW ONE Administration Lactated Ringer's 1,000 mls @ 999 mls/hr 01/20/19 14:18 01/20/19 14:21 Ringers, Lactated IV 01/20/19 15:18 999 mls/hr .BOLUS ONE Administration - Radiology Interpretation Free Text/Narrative:: Chest xray: No acute findings See rad report - Re-Assessments/Exams Free Text/Narrative Re-Assessment/Exam: 01/20/19 15:[address] Herrera at [facility] in [place] who states the patient can be observed at this facility. He states he will make a note in the chart for billing purposes. Discussed patient case with Dr. Yeung who agreed to accept the patient for observation. 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 DIRECTED Sodium Chloride 0.9% [Saline Flush] 10 ml FLUSH ASDIRECTED PRN Peripheral IV Insertion Adult [OM.PC] Stat 01/20/19 14:36 EKG 12 Lead [EKG Documentation Completion] [RC] STAT - Assessment/Plan Last 24 Hours: My Active Orders 01/20/19 14:15 EKG 12 Lead [EKG Documentation Completion] [RC] STAT 01/20/19 14:17 Peripheral IV Care [RC] . DIRECTED Sodium Chloride 0.9% [Saline Flush] 10 ml FLUSH ASDIRECTED PRN Peripheral IV Insertion Adult [OM.PC] Stat 01/20/19 14:36 EKG 12 Lead [EKG Documentation Completion] [RC] STAT
--- NOTE | 2019-01-20 14:53 | CR ---
Clinical history: 88-year-old male renal dialysis patient complaining of chest pain. 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 Normal cardiac silhouette without new cephalization vascular flow, new alveolar edema or dependent pleural fluid accumulation. No new lung mass, hilar lymphadenopathy or focal lobar pneumonia. No pneumothorax, atelectasis or collapse. CONCLUSION: No new cardiopulmonary abnormality since December 2018 exam.
[2019-01-20] MEDS ORDERED: Furosemide 40 MG/4 ML VIAL IVPUSH ONE (15:22)
[2019-01-20] MEDS ORDERED: Albuterol/Ipratropium 3.0-0.5 MG/3 ML Neb Soln NEB PRN (16:19)
--- NOTE | 2019-01-20 16:35 | PCM.HP ---
H&P History of Present Illness - General Date of Service: 01/20/19 Admit Problem/Dx: Admission Diagnosis/Problem Admission Diagnosis/Problem Afib, Atrial fibrillation Source of Information: Patient, EMS, Family History Limitations: Reports: No Limitations - History of Present Illness Initial Comments - Free Text/Narative: Tomas is a 88 year-old Male with past Medical History of Hypertension, Diabetes, Hyperlipidemia, A. fib not on chronic anticoagulant except for ASA 365 mg , ESRD on hemodialysis. The patient presented to the ER complaining of chest pain , palpitations and shortness of breath that started this afternoon. Patient had dialysis this morning and was okay. He went home to get some sleep. He woke up with chest pain and shortness of breath. Chest pain was sharp, central, nonradiating, about 5/10, no relieving or aggravating factors. EMS was activated and he was brought to the ER. In the ER he was found to be in A. fib with rapid RVR, HR was about 200. BNP was elevated. Troponin was 0.1. He received Cardizem IV push and HR got controlled to less than 100. Chest pain and shortness of breath improved. He was also found to be hypotensive at presentation. This also improved after hydration HR was controlled. He being admitted for further management. He denies fever, chills, diarrhea, constipation , nausea, vomiting, melena in the time of this evaluation the patient reports chest pain and shortness of breath has resolved. He has no leg swelling. Onset of Symptoms: Reports: Sudden Duration of Symptoms: Reports: Hour(s): Location: Reports: Chest Quality: Reports: Sharp Severity: Moderate Improves with: Reports: None Worsens with: Reports: None Associated Symptoms: Reports: Chest Pain, Shortness of Breath Middle Chest Pain Score (Numeric/FACES): 5 - Related Data Allergies/Adverse Reactions: Allergies Allergy/AdvReac Type Severity Reaction Status Date / Time No Known Allergies Allergy Verified 01/20/19 14:13 Home Medications: Home Meds glipiZIDE [Glucotrol] 5 mg PO QAM 07/22/14 [History] Metoprolol Succinate [Toprol XL 100mg] 25 mg PO BID 04/15/16 [History] Tamsulosin [Flomax] 0.4 mg PO DAILY 04/15/16 [History] atorvaSTATin [Lipitor] 40 mg PO BEDTIME 04/15/16 [History] Furosemide 80 mg PO TID 01/08/17 [History] Multivitamin [Men's Multi-Vitamin] 1 each PO DAILY 08/25/18 [History] Albuterol/Ipratropium [DuoNeb 3.0-0.5 MG/3 ML] 3 ml NEB Q4H PRN 12/11/18 [ History] Aspirin [Ecotrin] 325 mg PO DAILY 12/11/18 [History] LORazepam 1 mg PO BID PRN 12/11/18 [History] Sevelamer Carbonate 800 mg PO TID 12/11/18 [History] Past Medical History HEENT History: Reports: Impaired Vision Cardiovascular History: Reports: CAD, High Cholesterol, Hypertension, PVD Respiratory History: Reports: COPD Genitourinary History: Reports: BPH, Chronic Renal Insuffiency, Dialysis Musculoskeletal History: Reports: None Neurological History: Reports: None Psychiatric History: Reports: None Endocrine/Metabolic History: Reports: Diabetes, Type II, Obesity/BMI 30+ Hematologic History: Reports: None Immunologic History: Reports: None Oncologic (Cancer) History: Reports: None Dermatologic History: Reports: None - Infectious Disease History Infectious Disease History: Reports: None - Past Surgical History HEENT Surgical History: Reports: Tonsillectomy Social & Family History - Family History Family Medical History: Noncontributory - Tobacco Use Smoking Status *Q: Current Every Day Smoker Years of Tobacco use: 60 Packs/Tins Daily: 0.2 - Caffeine Use Caffeine Use: Reports: Coffee - Recreational Drug Use Recreational Drug Use: No - Living Situation & Occupation Living situation: Reports: with Family Occupation: Retired H&P Review of Systems - Review of Systems: Review Of Systems: See Below General: Reports: Weakness HEENT: Reports: No Symptoms Pulmonary: Reports: Shortness of Breath Cardiovascular: Reports: Palpitations Gastrointestinal: Reports: No Symptoms Genitourinary: Reports: No Symptoms Musculoskeletal: Reports: No Symptoms Skin: Reports: No Symptoms Psychiatric: Reports: No Symptoms Neurological: Reports: No Symptoms Hematologic/Lymphatic: Reports: No Symptoms Immunologic: Reports: No Symptoms Exam - Exam Exam: See Below - Vital Signs Vital Signs: Last Vital Signs Temp 96.5 F 01/20/19 13:55 Pulse 190 H 01/20/19 13:55 Resp 28 H 01/20/19 13:55 BP 76/47 L 04/13/19 13:55 Pulse Ox 91 L 01/20/19 13:55 Weight: 168 lb 14.4 oz - Exam Quality Assessment: DVT Prophylaxis General: Alert, Oriented, 4 HEENT: PERRLA, Hearing Intact, Mucosa Moist & [place], Nares Patent, Normal Nasal Septum, Posterior Pharynx Clear, Conjunctiva Clear, EOMI, EACs Clear, TMs Clear Neck: Supple, Trachea Midline, 2 Lungs: Clear to Auscultation, Normal Respiratory Effort Cardiovascular: Regular Rate, Regular Rhythm GI/Abdominal Exam: Normal Bowel Sounds, Soft, Non-Tender, No Organomegaly, No Distention, No Abnormal Bruit, No Mass, Pelvis Stable (Male) Exam: No Hernia, Normal Inspection, Normal Prostate, Circumcised Rectal (Males) Exam: Normal Exam, Normal Rectal Tone, Prostate Normal Back Exam: Normal Inspection, Full Range of Motion, NT Extremities: Normal Inspection, Normal Range of Motion, Non-Tender, No Pedal Edema, Normal Capillary Refill Skin: Warm, Dry, Intact Neurological: Cranial Nerves Intact, Reflexes Equal Bilateral Neuro Extensive - Mental Status: Alert, Oriented x3, Normal Mood/Affect, Normal Cognition Neuro Extensive - Motor, Sensory, Reflexes: CN II-XII Intact, Normal Gait, Normal Reflexes Psychiatric: Alert, Normal Affect, Normal Mood - Patient Data Lab Results Last 24 hrs: Laboratory Results - last 24 hr 01/20/19 01/20/19 01/20/19 Range/Units 14:04 14:04 14:35 WBC 9.8 (5.0-10.0) 10^3/uL RBC 3.77 L (4.6-6.2) 10^6/uL Hgb 11.7 L (14.0-18.0) g/dL Hct 36.7 L (40.0-54.0) % MCV 97.3 D (80-100) fL MCH 31.0 (27.0-34.0) pg MCHC 31.9 L (33.0-35.0) g/dL Plt Count 184 (150-450) 10^3/uL Neut % (Auto) 61.8 (42.2-75.2) % Lymph % (Auto) 24.5 (20.5-50.1) % [place] % (Auto) 10.0 H (2-8) % Eos % (Auto) 3.6 H (1.0-3.0) % Baso % (Auto) 0.1 (0.0-1.0) % Sodium 137 (135-145) mmol/L Potassium 4.5 (3.6-5.0) mmol/L Chloride 94 L (101-111) mmol/L Carbon Dioxide 28.0 (21.0-31.0) mmol/L Anion Gap 19.5 BUN 14 (7-18) mg/dL Creatinine 3.7 H D (0.6-1.3) mg/dL Est Cr Clr Drug Dosing 14.80 mL/min Estimated GFR (MDRD) 16 BUN/Creatinine Ratio 3.78 Glucose 235 H (74-105) mg/dL POC Glucose 246 H (83-110) mg/dl Calcium 8.5 (8.4-10.2) mg/dl Magnesium 1.6 L (1.8-2.5) mg/dL Total Bilirubin 0.7 (0.2-1.0) mg/dL AST 33 (10-42) IU/L ALT 15 (10-60) IU/L Alkaline Phosphatase 59 (42-121) IU/L Troponin I 0.10 H* (0.00-0.02) ng/ml B-Natriuretic Peptide 3930 H (0-100) pg/ml Total Protein 6.4 L (6.7-8.2) g/dl Albumin 3.4 (3.2-5.5) g/dl Globulin 3.0 Albumin/Globulin Ratio 1.13 Urine Color (YELLOW) Urine Appearance (CLEAR) Urine pH (5.0-9.0) Ur Specific [place] (1.005-1.030) Urine Protein (NEGATIVE) Urine Glucose (UA) (NEGATIVE) Urine Ketones (NEGATIVE) Urine Occult Blood (NEGATIVE) Urine Nitrite (NEGATIVE) Urine Bilirubin (NEGATIVE) Urine Urobilinogen (0.2-1.0) mg/dL Ur Leukocyte Esterase (NEGATIVE) Urine RBC /HPF Urine WBC (0-5/HPF) /HPF Ur Epithelial Cells /HPF Urine Bacteria (0-FEW/HPF) /HPF Hyaline Casts /LPF Fine Granular Casts (0/LPF) /LPF Urine Mucus /LPF 01/20/19 Range/Units 14:50 WBC (5.0-10.0) 10^3/uL RBC (4.6-6.2) 10^6/uL Hgb (14.0-18.0) g/dL Hct (40.0-54.0) % MCV (80-100) fL MCH (27.0-34.0) pg MCHC (33.0-35.0) g/dL Plt Count (150-450) 10^3/uL Neut % (Auto) (42.2-75.2) % Lymph % (Auto) (20.5-50.1) % [place] % (Auto) (2-8) % Eos % (Auto) (1.0-3.0) % Baso % (Auto) (0.0-1.0) % Sodium (135-145) mmol/L Potassium (3.6-5.0) mmol/L Chloride (101-111) mmol/L Carbon Dioxide (21.0-31.0) mmol/L Anion Gap BUN (7-18) mg/dL Creatinine (0.6-1.3) mg/dL Est Cr Clr Drug Dosing mL/min Estimated GFR (MDRD) BUN/Creatinine Ratio Glucose (74-105) mg/dL POC Glucose (83-110) mg/dl Calcium (8.4-10.2) mg/dl Magnesium (1.8-2.5) mg/dL Total Bilirubin (0.2-1.0) mg/dL AST (10-42) IU/L ALT (10-60) IU/L Alkaline Phosphatase (42-121) IU/L Troponin I (0.00-0.02) ng/ml B-Natriuretic Peptide (0-100) pg/ml Total Protein (6.7-8.2) g/dl Albumin (3.2-5.5) g/dl Globulin Albumin/Globulin Ratio Urine Color Yellow (YELLOW) Urine Appearance Slightly cloudy (CLEAR) Urine pH 8.5 (5.0-9.0) Ur Specific [place] 1.015 (1.005-1.030) Urine Protein >=300 H (NEGATIVE) Urine Glucose (UA) 100 H (NEGATIVE) Urine Ketones Negative (NEGATIVE) Urine Occult Blood Negative (NEGATIVE) Urine Nitrite Negative (NEGATIVE) Urine Bilirubin Negative (NEGATIVE) Urine Urobilinogen 0.2 (0.2-1.0) mg/dL Ur Leukocyte Esterase Negative (NEGATIVE) Urine RBC 0-5 /HPF Urine WBC 0-5 (0-5/HPF) /HPF Ur Epithelial Cells Many H /HPF Urine Bacteria Rare (0-FEW/HPF) /HPF Hyaline Casts Moderate H /LPF Fine Granular Casts Few H (0/LPF) /LPF Urine Mucus Few H /LPF Result Diagrams: 01/20/19 14:04 01/20/19 14:04 - Problem List (1) Hypomagnesemia SNOMED Code(s): 813575609 ICD Code: E83.42 - HYPOMAGNESEMIA Status: Acute Current Visit: Yes (2) Atrial fibrillation with RVR SNOMED Code(s): 480121056056432 ICD Code: I48.91 - UNSPECIFIED ATRIAL FIBRILLATION Status: Acute Current Visit: No (3) Chest pain SNOMED Code(s): 60157869 ICD Code: R07.9 - CHEST PAIN, UNSPECIFIED Status: Acute Current Visit: No Qualifiers: Chest pain type: unspecified Qualified Code(s): R07.9 - Chest pain, unspecified Problem List Initiated/Reviewed/Updated: Yes Orders Last 24hrs: Active Orders 24 hr Category Date Time Status Patient Status [ADT] Routine ADT 01/20/19 16:15 Ordered Ambulate [RC] ASDIRECTED Care 01/20/19 16:15 Ordered Antiembolic Devices [RC] .Routine Care 01/20/19 16:18 Ordered EKG 12 Lead [EKG Documentation Completion] [RC] STAT Care 01/20/19 14:15 Active EKG 12 Lead [EKG Documentation Completion] [RC] STAT Care 01/20/19 14:36 Active Oxygen Therapy [RC] PRN Care 01/20/19 16:17 Ordered Peripheral IV Care [RC] . DIRECTED Care 01/20/19 14:17 Active Pulse Oximetry [RC] PRN Care 01/20/19 16:17 Ordered Telemetry Monitoring [Cardiac Monitoring] [RC] . Care 01/20/19 16:21 Ordered DIRECTED VTE/DVT Education [RC] PER UNIT ROUTINE Care 01/20/19 16:18 Ordered Vital Signs [RC] Q4H Care 01/20/19 16:15 Ordered Consistent Carbohydrate Diet [DIET] Diet 01/20/19 Dinner Ordered Albuterol/Ipratropium [DuoNeb 3.0-0.5 MG/3 ML] Med 01/20/19 16:19 Ordered 3 ml NEB Q4H PRN Aspirin [Ecotrin] Med 01/21/19 09:00 Ordered 325 mg PO DAILY Furosemide [Lasix] Med 01/20/19 21:00 Ordered 80 mg PO TID Heparin Sodium Med 01/20/19 16:15 Ordered 5,000 units SUBCUT Q12H Metoprolol Succinate [Toprol XL 100mg] Med 01/20/19 21:00 Ordered 25 mg PO BID Multivitamin [Men's Multi-Vitamin] Med 01/21/19 09:00 Ordered 1 each PO DAILY Sevelamer Carbonate [Sevelamer Carbonate] Med 01/20/19 21:00 Ordered 800 mg PO TID Sodium Chloride 0.9% [Saline Flush] Med 01/20/19 14:17 Active 10 ml FLUSH ASDIRECTED PRN Tamsulosin [Flomax] Med 01/21/19 09:00 Ordered 0.4 mg PO DAILY atorvaSTATin [Lipitor] Med 01/20/19 21:00 Ordered 40 mg PO BEDTIME DVT/VTE Prophylaxis Reflex [OM.PC] Routine Oth 01/20/19 16:15 Ordered Peripheral IV Insertion Adult [OM.PC] Stat Oth 01/20/19 14:17 Ordered Resuscitation Status Routine Resus Stat 01/20/19 16:15 Ordered Medication Orders Albuterol/Ipratropium (Duoneb 3.0-0.5 Mg/3 Ml) 3 ml NEB Q4H PRN PRN Reason: Shortness of Breath Aspirin (Ecotrin) 325 mg PO DAILY STEPHIE Furosemide (Lasix) 80 mg PO TID STEPHIE Heparin Sodium (Porcine) (Heparin Sodium) 5,000 units SUBCUT Q12H STEPHIE Non-Formulary Medication (Atorvastatin [Lipitor]) 40 mg PO BEDTIME STEPHIE Non-Formulary Medication (Metoprolol Succinate [Toprol Xl 100mg]) 25 mg PO BID STEPHIE Non-Formulary Medication (Multivitamin [Men's Multi-Vitamin]) 1 each PO DAILY STEPHIE Non-Formulary Medication (Sevelamer Carbonate [Sevelamer Carbonate]) 800 mg PO TID STEPHIE Sodium Chloride (Saline Flush) 10 ml FLUSH ASDIRECTED PRN PRN Reason: Keep Vein Open Last Admin: 01/20/19 14:22 Dose: 10 ml Tamsulosin HCl (Flomax) 0.4 mg PO DAILY [facility] Assessment/Plan Comment:: Tomas is a 88 year-old Male with past Medical History of Hypertension, Diabetes, Hyperlipidemia, A. fib not on chronic anticoagulant except for ASA 365 mg , ESRD on hemodialysis. The patient presented to the ER complaining of chest pain , palpitations and shortness of breath that started this afternoon. Patient had dialysis this morning and was okay. He went home to get some sleep. He woke up with chest pain and shortness of breath. In the ER he was found to be in A. fib with rapid RVR, HR was about 200. BNP was elevated. Troponin was 0.1. He received Cardizem IV push and HR got controlled to less than 100. Chest pain and shortness of breath improved. He was also found to be hypotensive at presentation. A. fib with rapid ventricular rate Heart rates improved with Cardizem IV push Currently asymptomatic Admit patient to general medical floors Monitor on telemetry Multivitamins Continue metoprolol XL for rate control Continue aspirin 365 mg daily Acute exacerbation of CHF due to A. fib BNP elevated but patient is ESRD and that could be contributing to this He is euvolemic on exam Continue home medication including lasix Patient had dialysis today End-stage renal disease on hemodialysis Had dialysis today Not in fluid overload Hypomagnesemia. IV replacement Hypertension Patient was hypotensive on presentation. This improved following control of A. fib. Monitor BP closely Continuing home medications Type 2 diabetes Suboptimally controlled Continuing for medication [id number] glucose 4 times daily SSI for optimal glycemic control Hypoglycemia protocol HLD On Lipitor Diet Diabetic DNR/DNI
[2019-01-20] MEDS ORDERED: Magnesium Sulfate/Water 2 GM in Premix Bag 1 BAG IV ONE (16:45)
[2019-01-20] MEDS ORDERED: LORazepam 1 MG Tab PO PRN (17:00)
[2019-01-20] MEDS: FUROSEMIDE 80 MG PO SCH (17:23)
[2019-01-20] MEDS: Insulin Lispro 100 Units/ML 3 ML Vial SUBCUT SCH (17:38)
[2019-01-20] MEDS ORDERED: 4 PO SCH (21:00)
[2019-01-20] MEDS ORDERED: SEVELAMER CARBONATE 800 MG PO SCH (21:00)
[2019-01-20] MEDS ORDERED: Diltiazem 25 MG/5 ML SDV IVPUSH STA (21:11)
[2019-01-20] MEDS: Metoprolol Succinate 25 MG Tab.ER PO SCH (21:18)
[2019-01-20] MEDS: Heparin Sodium 5,000 Units/ML Vial SUBCUT SCH (21:26)
[2019-01-21] MEDS ORDERED: Zolpidem 5 MG Tab PO ONE (00:30)
[2019-01-21] MEDS: Insulin Lispro 100 Units/ML 3 ML Vial SUBCUT SCH ×3 (00:49→12:11)
[2019-01-21] MEDS ORDERED: glipiZIDE 5 MG Tab PO SCH (08:00)
[2019-01-21] MEDS ORDERED: Aspirin 81 MG Tab.EC*PT OWN MED PO SCH (08:00)
[2019-01-21] MEDS: Metoprolol Succinate 25 MG Tab.ER PO SCH (08:44)
[2019-01-21] MEDS: Heparin Sodium 5,000 Units/ML Vial SUBCUT SCH (08:45)
[2019-01-21] MEDS ORDERED: Aspirin 325 MG Tab.EC PO SCH (09:00)
[2019-01-21] MEDS ORDERED: Tamsulosin 0.4 MG Cap.ER PO SCH (09:00)
[2019-01-21] MEDS ORDERED: Multivitamins, Therapeutic with Minerals Tab PO SCH (09:00)
[2019-01-21] MEDS: FUROSEMIDE 80 MG PO SCH ×2 (09:30→12:12)
[2019-01-21] MEDS: SEVELAMER CARBONATE 800 MG PO SCH ×2 (09:30→12:12)
[2019-01-21 11:16] VITALS: BP 144/76
[2019-01-21] MEDS ORDERED: Diltiazem IR 30 MG Tab PO SCH (12:00)
--- NOTE | 2019-01-21 12:01 | PCM.DCSUM1 ---
Discharge Summary - Hospital Course Free Text/Narrative:: Tomas is a 88 year-old Male with past Medical History of Hypertension, Diabetes, Hyperlipidemia, A. fib not on chronic anticoagulant except for ASA 365 mg , ESRD on hemodialysis. The patient presented to the ER complaining of chest pain , palpitations and shortness of breath that started this afternoon. In the ER he was found to be in A. fib with rapid RVR, HR was about 200. BNP was elevated. Troponin was 0.1. He received Cardizem IV push and HR got controlled to less than 100. Chest pain and shortness of breath improved. He was also found to be hypotensive at presentation. This also improved after hydration HR was controlled. He was admitted for further management. His stay has been uneventful. His HR occasionally jump to the 140s briefly and return to in the 90s. Patient feeling well this morning and wants to go home. He denies chest pain, SOB. He will be discharged home on PO diltiazem. His vitals are unremarkable at the time of discharge. He will follow up with PCP tomorrow. Diagnosis: Stroke: No - Discharge Data Discharge Date: 01/21/19 Discharge Disposition: Home, Self-Care 01 Condition: Good - Discharge Diagnosis/Problem(s) (1) Hypomagnesemia SNOMED Code(s): 355236137 ICD Code: E83.42 - HYPOMAGNESEMIA Status: Acute Current Visit: Yes (2) Atrial fibrillation with RVR SNOMED Code(s): 236208044639861 ICD Code: I48.91 - UNSPECIFIED ATRIAL FIBRILLATION Status: Acute Current Visit: No (3) Chest pain SNOMED Code(s): 18001214 ICD Code: R07.9 - CHEST PAIN, UNSPECIFIED Status: Acute Current Visit: No Qualifiers: Chest pain type: unspecified Qualified Code(s): R07.9 - Chest pain, unspecified - Patient Instructions Diet: Heart Healthy Diet Fluid Restriction: 1500 mL Activity: As Tolerated Driving: Do Not Drive Showering/Bathing: May Shower Notify Provider of: Fever, Increased Pain, Swelling and Redness, Nausea and/or Vomiting - Discharge Plan *PRESCRIPTION DRUG MONITORING PROGRAM REVIEWED*: Not Applicable *COPY OF PRESCRIPTION DRUG MONITORING REPORT IN PATIENT MENDEL: Yes Prescriptions/Med Rec: Diltiazem IR [Cardizem] 30 mg PO Q6HR #120 tablet Furosemide [Lasix] 80 mg PO TID@0800,1200,1600 #120 tablet Home Medications: Home Meds glipiZIDE [Glucotrol] 5 mg PO QAM 07/22/14 [History] Metoprolol Succinate [Toprol XL 100mg] 50 mg PO BID 04/15/16 [History] Tamsulosin [Flomax] 0.4 mg PO DAILY 04/15/16 [History] atorvaSTATin [Lipitor] 40 mg PO BEDTIME 04/15/16 [History] Multivitamin [Men's Multi-Vitamin] 1 each PO DAILY 08/25/18 [History] LORazepam 1 mg PO BID PRN 12/11/18 [History] Sevelamer Carbonate 1,600 mg PO TID 12/11/18 [History] Albuterol/Ipratropium [Combivent Respimat] 1 puff PO DAILY PRN 01/20/19 [History ] Aspirin 1 tab PO DAILY 01/20/19 [History] Docusate Sodium 100 mg PO DAILY PRN 01/20/19 [History] Ergocalciferol (Vitamin D2) [Vitamin D2] 1 tab PO DAILY 01/20/19 [History] NIFEdipine [Nifedipine ER] 30 mg PO QPM 01/20/19 [History] Diltiazem IR [Cardizem] 30 mg PO Q6HR #120 tablet 01/21/19 [Rx] Furosemide [Lasix] 80 mg PO TID@0800,1200,1600 #120 tablet 01/21/19 [Rx] Forms: ED Department Discharge Referrals: PCP,None [Ordering Only Provider] - - Discharge Summary/Plan Comment DC Time >30 min.: Yes - General Info Date of Service: 01/21/19 Admission Dx/Problem (Free Text: Admission Diagnosis/Problem Admission Diagnosis/Problem Afib, Atrial fibrillation Functional Status: Reports: Pain Controlled - Review of Systems General: Reports: No Symptoms HEENT: Reports: No Symptoms Pulmonary: Reports: No Symptoms Cardiovascular: Reports: No Symptoms Gastrointestinal: Reports: No Symptoms Genitourinary: Reports: No Symptoms Musculoskeletal: Reports: No Symptoms Skin: Reports: No Symptoms Neurological: Reports: No Symptoms Psychiatric: Reports: No Symptoms - Patient Data Vitals - Most Recent: Last Vital Signs Temp 98.0 F 01/21/19 11:00 Pulse 95 01/21/19 11:00 Resp 20 01/21/19 11:00 BP 144/76 H 01/21/19 11:00 Pulse Ox 95 01/21/19 11:00 Weight - Most Recent: 168 lb 8 oz I&O - Last 24 hours: Intake & Output 01/20/19 01/21/19 01/21/19 22:59 06:59 14:59 Intake Total 100 200 Output Total 200 125 Balance -200 -25 200 Lab Results - Last 24 hrs: Laboratory Results - last 24 hr 01/20/19 01/20/19 01/20/19 Range/Units 14:04 14:04 14:35 WBC 9.8 (5.0-10.0) 10^3/uL RBC 3.77 L (4.6-6.2) 10^6/uL Hgb 11.7 L (14.0-18.0) g/dL Hct 36.7 L (40.0-54.0) % MCV 97.3 D (80-100) fL MCH 31.0 (27.0-34.0) pg MCHC 31.9 L (33.0-35.0) g/dL Plt Count 184 (150-450) 10^3/uL Neut % (Auto) 61.8 (42.2-75.2) % Lymph % (Auto) 24.5 (20.5-50.1) % [place] % (Auto) 10.0 H (2-8) % Eos % (Auto) 3.6 H (1.0-3.0) % Baso % (Auto) 0.1 (0.0-1.0) % Sodium 137 (135-145) mmol/L Potassium 4.5 (3.6-5.0) mmol/L Chloride 94 L (101-111) mmol/L Carbon Dioxide 28.0 (21.0-31.0) mmol/L Anion Gap 19.5 BUN 14 (7-18) mg/dL Creatinine 3.7 H D (0.6-1.3) mg/dL Est Cr Clr Drug Dosing 14.80 mL/min Estimated GFR (MDRD) 16 BUN/Creatinine Ratio 3.78 Glucose 235 H (74-105) mg/dL POC Glucose 246 H (83-110) mg/dl Calcium 8.5 (8.4-10.2) mg/dl Magnesium 1.6 L (1.8-2.5) mg/dL Total Bilirubin 0.7 (0.2-1.0) mg/dL AST 33 (10-42) IU/L ALT 15 (10-60) IU/L Alkaline Phosphatase 59 (42-121) IU/L Troponin I 0.10 H* (0.00-0.02) ng/ml B-Natriuretic Peptide 3930 H (0-100) pg/ml Total Protein 6.4 L (6.7-8.2) g/dl Albumin 3.4 (3.2-5.5) g/dl Globulin 3.0 Albumin/Globulin Ratio 1.13 Urine Color (YELLOW) Urine Appearance (CLEAR) Urine pH (5.0-9.0) Ur Specific [place] (1.005-1.030) Urine Protein (NEGATIVE) Urine Glucose (UA) (NEGATIVE) Urine Ketones (NEGATIVE) Urine Occult Blood (NEGATIVE) Urine Nitrite (NEGATIVE) Urine Bilirubin (NEGATIVE) Urine Urobilinogen (0.2-1.0) mg/dL Ur Leukocyte Esterase (NEGATIVE) Urine RBC /HPF Urine WBC (0-5/HPF) /HPF Ur Epithelial Cells /HPF Urine Bacteria (0-FEW/HPF) /HPF Hyaline Casts /LPF Fine Granular Casts (0/LPF) /LPF Urine Mucus /LPF 01/20/19 01/20/19 01/20/19 Range/Units 14:50 17:09 21:02 WBC (5.0-10.0) 10^3/uL RBC (4.6-6.2) 10^6/uL Hgb (14.0-18.0) g/dL Hct (40.0-54.0) % MCV (80-100) fL MCH (27.0-34.0) pg MCHC (33.0-35.0) g/dL Plt Count (150-450) 10^3/uL Neut % (Auto) (42.2-75.2) % Lymph % (Auto) (20.5-50.1) % [place] % (Auto) (2-8) % Eos % (Auto) (1.0-3.0) % Baso % (Auto) (0.0-1.0) % Sodium (135-145) mmol/L Potassium (3.6-5.0) mmol/L Chloride (101-111) mmol/L Carbon Dioxide (21.0-31.0) mmol/L Anion Gap BUN (7-18) mg/dL Creatinine (0.6-1.3) mg/dL Est Cr Clr Drug Dosing mL/min Estimated GFR (MDRD) BUN/Creatinine Ratio Glucose (74-105) mg/dL POC Glucose 189 H 56 L (83-110) mg/dl Calcium (8.4-10.2) mg/dl Magnesium (1.8-2.5) mg/dL Total Bilirubin (0.2-1.0) mg/dL AST (10-42) IU/L ALT (10-60) IU/L Alkaline Phosphatase (42-121) IU/L Troponin I (0.00-0.02) ng/ml B-Natriuretic Peptide (0-100) pg/ml Total Protein (6.7-8.2) g/dl Albumin (3.2-5.5) g/dl Globulin Albumin/Globulin Ratio Urine Color Yellow (YELLOW) Urine Appearance Slightly cloudy (CLEAR) Urine pH 8.5 (5.0-9.0) Ur Specific [place] 1.015 (1.005-1.030) Urine Protein >=300 H (NEGATIVE) Urine Glucose (UA) 100 H (NEGATIVE) Urine Ketones Negative (NEGATIVE) Urine Occult Blood Negative (NEGATIVE) Urine Nitrite Negative (NEGATIVE) Urine Bilirubin Negative (NEGATIVE) Urine Urobilinogen 0.2 (0.2-1.0) mg/dL Ur Leukocyte Esterase Negative (NEGATIVE) Urine RBC 0-5 /HPF Urine WBC 0-5 (0-5/HPF) /HPF Ur Epithelial Cells Many H /HPF Urine Bacteria Rare (0-FEW/HPF) /HPF Hyaline Casts Moderate H /LPF Fine Granular Casts Few H (0/LPF) /LPF Urine Mucus Few H /LPF 01/20/19 01/21/19 01/21/19 Range/Units 21:32 00:51 07:36 WBC (5.0-10.0) 10^3/uL RBC (4.6-6.2) 10^6/uL Hgb (14.0-18.0) g/dL Hct (40.0-54.0) % MCV (80-100) fL MCH (27.0-34.0) pg MCHC (33.0-35.0) g/dL Plt Count (150-450) 10^3/uL Neut % (Auto) (42.2-75.2) % Lymph % (Auto) (20.5-50.1) % [place] % (Auto) (2-8) % Eos % (Auto) (1.0-3.0) % Baso % (Auto) (0.0-1.0) % Sodium (135-145) mmol/L Potassium (3.6-5.0) mmol/L Chloride (101-111) mmol/L Carbon Dioxide (21.0-31.0) mmol/L Anion Gap BUN (7-18) mg/dL Creatinine (0.6-1.3) mg/dL Est Cr Clr Drug Dosing mL/min Estimated GFR (MDRD) BUN/Creatinine Ratio Glucose (74-105) mg/dL POC Glucose 92 123 H 112 H (83-110) mg/dl Calcium (8.4-10.2) mg/dl Magnesium (1.8-2.5) mg/dL Total Bilirubin (0.2-1.0) mg/dL AST (10-42) IU/L ALT (10-60) IU/L Alkaline Phosphatase (42-121) IU/L Troponin I (0.00-0.02) ng/ml B-Natriuretic Peptide (0-100) pg/ml Total Protein (6.7-8.2) g/dl Albumin (3.2-5.5) g/dl Globulin Albumin/Globulin Ratio Urine Color (YELLOW) Urine Appearance (CLEAR) Urine pH (5.0-9.0) Ur Specific [place] (1.005-1.030) Urine Protein (NEGATIVE) Urine Glucose (UA) (NEGATIVE) Urine Ketones (NEGATIVE) Urine Occult Blood (NEGATIVE) Urine Nitrite (NEGATIVE) Urine Bilirubin (NEGATIVE) Urine Urobilinogen (0.2-1.0) mg/dL Ur Leukocyte Esterase (NEGATIVE) Urine RBC /HPF Urine WBC (0-5/HPF) /HPF Ur Epithelial Cells /HPF Urine Bacteria (0-FEW/HPF) /HPF Hyaline Casts /LPF Fine Granular Casts (0/LPF) /LPF Urine Mucus /LPF 01/21/19 01/21/19 Range/Units 10:35 11:20 WBC (5.0-10.0) 10^3/uL RBC (4.6-6.2) 10^6/uL Hgb (14.0-18.0) g/dL Hct (40.0-54.0) % MCV (80-100) fL MCH (27.0-34.0) pg MCHC (33.0-35.0) g/dL Plt Count (150-450) 10^3/uL Neut % (Auto) (42.2-75.2) % Lymph % (Auto) (20.5-50.1) % [place] % (Auto) (2-8) % Eos % (Auto) (1.0-3.0) % Baso % (Auto) (0.0-1.0) % Sodium (135-145) mmol/L Potassium (3.6-5.0) mmol/L Chloride (101-111) mmol/L Carbon Dioxide (21.0-31.0) mmol/L Anion Gap BUN (7-18) mg/dL Creatinine (0.6-1.3) mg/dL Est Cr Clr Drug Dosing mL/min Estimated GFR (MDRD) BUN/Creatinine Ratio Glucose (74-105) mg/dL POC Glucose 103 (83-110) mg/dl Calcium (8.4-10.2) mg/dl Magnesium 2.3 (1.8-2.5) mg/dL Total Bilirubin (0.2-1.0) mg/dL AST (10-42) IU/L ALT (10-60) IU/L Alkaline Phosphatase (42-121) IU/L Troponin I (0.00-0.02) ng/ml B-Natriuretic Peptide (0-100) pg/ml Total Protein (6.7-8.2) g/dl Albumin (3.2-5.5) g/dl Globulin Albumin/Globulin Ratio Urine Color (YELLOW) Urine Appearance (CLEAR) Urine pH (5.0-9.0) Ur Specific [place] (1.005-1.030) Urine Protein (NEGATIVE) Urine Glucose (UA) (NEGATIVE) Urine Ketones (NEGATIVE) Urine Occult Blood (NEGATIVE) Urine Nitrite (NEGATIVE) Urine Bilirubin (NEGATIVE) Urine Urobilinogen (0.2-1.0) mg/dL Ur Leukocyte Esterase (NEGATIVE) Urine RBC /HPF Urine WBC (0-5/HPF) /HPF Ur Epithelial Cells /HPF Urine Bacteria (0-FEW/HPF) /HPF Hyaline Casts /LPF Fine Granular Casts (0/LPF) /LPF Urine Mucus /LPF Med Orders - Current: Current Medications Albuterol/Ipratropium (Duoneb 3.0-0.5 Mg/3 Ml) 3 ml NEB Q4H PRN PRN Reason: Shortness of Breath Last Admin: 01/21/19 09:22 Dose: 3 ml Aspirin (Halfprin) 162 mg PO WITHBREAKFAST [facility] Last Admin: 01/21/19 09:30 Dose: 162 mg Atorvastatin Calcium (Lipitor) 40 mg PO BEDTIME [facility] Last Admin: 01/20/19 21:19 Dose: 40 mg Diltiazem HCl (Cardizem) 30 mg PO Q6HR [facility] Last Admin: 01/21/19 11:10 Dose: 30 mg Furosemide (Lasix) 80 mg PO TID@0800,1200,1600 [facility] Last Admin: 01/21/19 09:30 Dose: 80 mg Glipizide (Glucotrol) 5 mg PO WITHBREAKFAST [facility] Last Admin: 01/21/19 08:44 Dose: 5 mg Heparin Sodium (Porcine) (Heparin Sodium) 5,000 units SUBCUT Q12H [facility] Last Admin: 01/21/19 08:45 Dose: 5,000 units Insulin Human Lispro (Humalog) 0 unit SUBCUT ACBED STEPHIE; Protocol Last Admin: 01/21/19 09:24 Dose: Not Given Lorazepam (Ativan) 1 mg PO BID PRN PRN Reason: ANXIETY Last Admin: 01/21/19 02:37 Dose: 1 mg Metoprolol Succinate (Toprol Xl) 50 mg PO BID [facility] Multivitamins/Minerals (Vitamins And Minerals) 1 tab PO DAILY [facility] Last Admin: 01/21/19 08:45 Dose: 1 tab Sevelamer Carbonate 800 Mg Tab*Pt Owm Med* 3 each PO TIDMEALS [facility] Last Admin: 01/21/19 09:30 Dose: 3 each Sodium Chloride (Saline Flush) 10 ml FLUSH ASDIRECTED PRN PRN Reason: Keep Vein Open Last Admin: 01/20/19 14:22 Dose: 10 ml Tamsulosin HCl (Flomax) 0.4 mg PO DAILY [facility] Last Admin: 01/21/19 08:44 Dose: 0.4 mg Discontinued Medications Aspirin (Ecotrin) 325 mg PO DAILY [facility] Last Admin: 01/21/19 09:09 Dose: Not Given Diltiazem HCl (Diltiazem) 20 mg IVPUSH ONETIME ONE Stop: 01/20/19 14:22 Last Admin: 01/20/19 14:24 Dose: 20 mg Diltiazem HCl (Diltiazem) 10 mg IVPUSH ONETIME STA Stop: 01/20/19 21:12 Last Admin: 01/20/19 21:16 Dose: 10 mg Furosemide (Lasix) 80 mg IVPUSH NOW ONE Stop: 01/20/19 15:23 Last Admin: 01/20/19 15:28 Dose: 80 mg Lactated Ringer's (Ringers, Lactated) 1,000 mls @ 999 mls/hr IV .BOLUS ONE Stop: 01/20/19 15:18 Last Admin: 01/20/19 14:21 Dose: 999 mls/hr Magnesium Sulfate 2 gm/ Premix 50 mls @ 25 mls/hr IV ONETIME ONE Stop: 01/20/19 18:44 Last Infusion: 01/20/19 18:58 Dose: 25 mls/hr Metoprolol Succinate (Toprol Xl) 25 mg PO BID [facility] Last Admin: 01/21/19 08:44 Dose: 25 mg (Sevelamer Carbonate [Sevelamer Carbonate] 800 Mg)* Pt Own Med* 800 mg PO TID [facility] Last Admin: 01/21/19 09:09 Dose: Not Given Zolpidem Tartrate (Ambien) 5 mg PO ONETIME ONE Stop: 01/21/19 00:31 Last Admin: 01/21/19 01:02 Dose: 5 mg - Exam General: Reports: Alert, Oriented HEENT: Reports: Pupils Equal, Pupils Reactive, EOMI, Mucous Membr. Moist/[place] Neck: Reports: Supple Lungs: Reports: Clear to Auscultation, Normal Respiratory Effort Cardiovascular: Reports: Regular Rate, Regular Rhythm GI/Abdominal Exam: Normal Bowel Sounds, Soft, Non-Tender, No Organomegaly, No Distention, No Abnormal Bruit, No Mass, Pelvis Stable (Male) Exam: No Hernia, Normal Inspection, Normal Prostate, Circumcised Rectal (Males) Exam: Normal Exam, Normal Rectal Tone, Prostate Normal Back Exam: Reports: Normal Inspection, Full Range of Motion Extremities: Normal Inspection, Normal Range of Motion, Non-Tender, No Pedal Edema, Normal Capillary Refill Skin: Reports: Warm, Dry, Intact Wound/Incisions: Reports: Healing Well Neurological: Reports: No New Focal Deficit Psy/Mental Status: Reports: Alert, Normal Affect, Normal Mood
[2019-01-21] MEDS ORDERED: Metoprolol Succinate 50 MG Tab.ER PO SCH (21:00)
== END 2019-01-21 13:40 | disposition home or self-care (01) ==
LOC: DL.ED 13:55 → UNDOADMOB 16:08 → DL.MS 16:08
PROVIDERS: ADMIT Student in an Organized Health Care Education/Training Program; ATTEND Student in an Organized Health Care Education/Training Program
DX: I48.91 Unspecified atrial fibrillation (principal); I13.2 Hypertensive heart and chronic kidney disease with heart failure and with stage 5 chronic kidney disease, or end stage renal disease; E11.22 Type 2 diabetes mellitus with diabetic chronic kidney disease; N18.6 End stage renal disease; I50.9 Heart failure, unspecified; I25.10 Atherosclerotic heart disease of native coronary artery without angina pectoris; E83.42 Hypomagnesemia; E78.00 Pure hypercholesterolemia, unspecified; J44.9 Chronic obstructive pulmonary disease, unspecified; F17.200 Nicotine dependence, unspecified, uncomplicated; N17.9 Acute kidney failure, unspecified; Z99.2 Dependence on renal dialysis; Z66 Do not resuscitate; Z79.82 Long term (current) use of aspirin; Z79.84 Long term (current) use of oral hypoglycemic drugs; Z79.899 Other long term (current) drug therapy
CPT/HCPCS: 36415; 71045; 80053; 81001; 82962; 83735; 83880; 84484; 85025; 93005; 94640; 96365; 96366; 96372; 96374; 96375; 96376; 99284; 99285-25; A9270-GY; G0378; J1644; J1815; J1940; J3475; J3490; J7120; J7620-GY

== ENCOUNTER 2019-09-04 09:45 | Emergency (ER) | payer MEDICARE, OTHER ==
[2019-09-04 09:07] VITALS: BP 155/53; PULSE 87
[2019-09-04 09:44] LABS: CHLORIDE,CL 97 mmol/L (101-111); SODIUM,NA 141 mmol/L (135-145)
--- NOTE | 2019-09-04 09:46 | EDM.PDOC ---
ED HPI GENERAL MEDICAL PROBLEM - General Stated Complaint: [facility] Time Seen by Provider: 09/04/19 09:20 Source of Information: Reports: Patient, Family History Limitations: Reports: No Limitations - History of Present Illness INITIAL COMMENTS - FREE TEXT/NARRATIVE: This 88 yo male patient reports to the [facility] The patient was seen in the clinic 1 week ago and diagnosed with pneumonia. The patient has been on Levaquin for the past week, but he has not been getting any better. The patient has a history of endstage kidney disease and is on dialysis. The patient did have a 2 hour dialysis run today. The patient reports increased discomfort in his buttocks. The patient reports feeling better when he is on his side. Duration: Day(s):, Constant, Getting Worse Location: Reports: Chest, Generalized Quality: Reports: Other Severity: Moderate Improves with: Reports: None Worsens with: Reports: None Context: Reports: Other Associated Symptoms: Reports: No Other Symptoms - Related Data Allergies Allergy/AdvReac Type Severity Reaction Status Date / Time Carvedilol Allergy Unknown Cannot Uncoded 09/04/19 09:07 Remember Home Meds: Home Meds glipiZIDE [Glucotrol] 5 mg PO QAM 07/22/14 [History] Tamsulosin [Flomax] 0.4 mg PO DAILY 04/15/16 [History] Sevelamer Carbonate 800 mg PO TID 12/11/18 [History] Aspirin 2 tab PO DAILY 01/20/19 [History] Ergocalciferol (Vitamin D2) [Vitamin D2] 1 tab PO DAILY 01/20/19 [History] Diltiazem IR [Cardizem] 30 mg PO Q6HR #120 tablet 01/21/19 [Rx] Furosemide [Lasix] 80 mg PO TID@0800,1200,1600 #120 tablet 01/21/19 [Rx] Folic Acid/Vit Bcomp,C [Renal Vitamin Tablet] 1 tab PO DAILY 09/04/19 [History] Metoprolol Tartrate 25 mg PO BID 09/04/19 [History] Midodrine 2.5 mg PO ASDIRECTED PRN 09/04/19 [History] Past Medical History HEENT History: Reports: Impaired Vision Cardiovascular History: Reports: CAD, High Cholesterol, Hypertension, PVD Respiratory History: Reports: COPD Gastrointestinal History: Reports: None Genitourinary History: Reports: BPH, Chronic Renal Insuffiency, Dialysis Musculoskeletal History: Reports: None Neurological History: Reports: None Psychiatric History: Reports: None Endocrine/Metabolic History: Reports: Diabetes, Type II, Obesity/BMI 30+ Hematologic History: Reports: None Immunologic History: Reports: None Oncologic (Cancer) History: Reports: None Dermatologic History: Reports: None - Infectious Disease History Infectious Disease History: Reports: None - Past Surgical History HEENT Surgical History: Reports: Tonsillectomy Social & Family History - Family History Family Medical History: Noncontributory - Tobacco Use Smoking Status *Q: Current Every Day Smoker Years of Tobacco use: 60 Packs/Tins Daily: 0.4 - Caffeine Use Caffeine Use: Reports: Coffee - Recreational Drug Use Recreational Drug Use: No - Living Situation & Occupation Living situation: Reports: with Family Occupation: Retired ED ROS GENERAL - Review of Systems Review Of Systems: Comprehensive ROS is negative, except as noted in HPI. ED EXAM, GENERAL - Physical Exam Exam: See Below Exam Limited By: No Limitations General Appearance: Alert, WD/WN, Moderate Distress Eye Exam: Bilateral Eye: EOMI, Normal Inspection, PERRL Ears: Normal External Exam, Normal Canal, Hearing Grossly Normal, Normal TMs Nose: Normal Inspection, Normal Mucosa, No Blood Throat/Mouth: Normal Inspection, Normal Lips, Normal Teeth, Normal Gums, Normal Oropharynx, Normal Voice, No Airway Compromise Head: Atraumatic, Normocephalic Neck: Normal Inspection, Supple, Non-Tender, Full Range of Motion Respiratory/Chest: No Accessory Muscle Use, Chest Non-Tender, Decreased Breath Sounds (left lower lobe), Rhonchi Cardiovascular: Normal Peripheral Pulses, Regular Rate, Rhythm, No Edema, No Gallop, No JVD, No Murmur, No Rub GI/Abdominal: Normal Bowel Sounds, Soft, Non-Tender, No Organomegaly, No Distention, No Abnormal Bruit, No Mass (Male) Exam: Deferred Rectal (Males) Exam: Deferred Back Exam: Normal Inspection, Full Range of Motion, NT Extremities: Normal Inspection, Normal Range of Motion, Non-Tender, Normal Capillary Refill, No Pedal Edema Neurological: Alert, Oriented, CN II-XII Intact, Normal Cognition, Normal Gait, Normal Reflexes, No Motor/Sensory Deficits Psychiatric: Normal Affect, Normal Mood Skin Exam: Warm, Dry, Intact, No Rash, Erythema (small amount of redness over the coccyx with no evidence of infection. ) Lymphatic: No Adenopathy Course - Vital Signs Last Recorded V/S: Last Vital Signs Temp 37.2 C 09/04/19 09:05 Pulse 87 09/04/19 09:05 Resp 18 09/04/19 09:05 BP 155/53 H 09/04/19 09:05 Pulse Ox 97 09/04/19 09:28 - Orders/Labs/Meds Orders: Active Orders 24 hr Category Date Time Status CULTURE BLOOD [BC] Stat Lab 09/04/19 08:42 Ordered CULTURE BLOOD [BC] Stat Lab 09/04/19 08:42 Ordered Blood Culture x2 Reflex Set [OM.PC] Stat Oth 09/04/19 08:42 Ordered Labs: Laboratory Tests 09/04/19 09/04/19 09/04/19 Range/Units 08:49 08:49 09:17 WBC 10.8 H (5.0-10.0) 10^3/uL RBC 3.59 L (4.6-6.2) 10^6/uL Hgb 11.1 L (14.0-18.0) g/dL Hct 33.9 L (40.0-54.0) % MCV 94.4 (80-100) fL MCH 30.9 (27.0-34.0) pg MCHC 32.7 L (33.0-35.0) g/dL Plt Count 168 (150-450) 10^3/uL Neut % (Auto) 81.8 H (42.2-75.2) % Lymph % (Auto) 8.8 L (20.5-50.1) % [place] % (Auto) 8.8 H (2-8) % Eos % (Auto) 0.5 L (1.0-3.0) % Baso % (Auto) 0.1 (0.0-1.0) % Sodium 141 (135-145) mmol/L Potassium 4.0 (3.6-5.0) mmol/L Chloride 97 L (101-111) mmol/L Carbon Dioxide 33.0 H (21.0-31.0) mmol/L Anion Gap 15.0 BUN 21 H (7-18) mg/dL Creatinine 4.4 H (0.6-1.3) mg/dL Est Cr Clr Drug Dosing TNP Estimated GFR (MDRD) 13 BUN/Creatinine Ratio 4.77 Glucose 57 L (74-105) mg/dL Lactic Acid 1.2 (0.5-2.2) mmol/L Calcium 8.9 (8.4-10.2) mg/dl Total Bilirubin 0.9 (0.2-1.0) mg/dL AST 30 (10-42) IU/L ALT 17 (10-60) IU/L Alkaline Phosphatase 39 L (42-121) IU/L Total Protein 6.5 L (6.7-8.2) g/dl Albumin 3.3 (3.2-5.5) g/dl Globulin 3.2 Albumin/Globulin Ratio 1.03 Departure - Departure Time of Disposition: 11:05 Disposition: DC/Tfer to [facility] 02 Condition: Serious Clinical Impression: Pneumonia Qualifiers: Pneumonia type: due to unspecified organism Laterality: left Lung location: lower lobe of lung Qualified Code(s): J18.9 - Pneumonia, unspecified organism - Discharge Information *PRESCRIPTION DRUG MONITORING PROGRAM REVIEWED*: Not Applicable *COPY OF PRESCRIPTION DRUG MONITORING REPORT IN PATIENT MENDEL: Not Applicable Forms: Interfacility Transfer EMTALA Care Plan Goals: Discussed the patient's history, examination, lab and x-ray results with Dr Terrazas ([facility] in [place]). The patient was accepted for continued evaluation and management as an inpatient at the [facility] in [place]. The patient will be transported by [facility]. - My Orders Last 24 Hours: My Active Orders 09/04/19 08:42 CULTURE BLOOD [BC] Stat CULTURE BLOOD [BC] Stat Blood Culture x2 Reflex Set [OM.PC] Stat - Assessment/Plan Last 24 Hours: My Active Orders 09/04/19 08:42 CULTURE BLOOD [BC] Stat CULTURE BLOOD [BC] Stat Blood Culture x2 Reflex Set [OM.PC] Stat
--- NOTE | 2019-09-04 10:00 | CR ---
EXAMINATION: Chest 2V SEX: Male AGE: 88 years CLINICAL HISTORY: 88-year-old male dialysis patient complaining of SHORT OF BREATH. INTERPRETATION: (Comparison films for December and 20 January 2019) 1. Persistent asymmetric dense consolidation left base with silhouetting the ipsilateral hemidiaphragm and shift of the midline structures indicating probable underlying atelectasis/collapse. Meniscus left CP angle consistent with large pleural effusion. 2. No change in the cardiac silhouette (chronic cardiomegaly) and no new pulmonary vascular congestion, cephalization of flow or signs of alveolar edema. Generalized air trapping with small pleural effusion blunting the posterior costophrenic sulcus, on the right. 3. No new lung mass, hilar lymphadenopathy or other focal lobar consolidation. CONCLUSION: Chronic abnormalities left lung base.
== END 2019-09-04 11:58 ==
LOC: DL.ED 09:45
DX: J44.0 Chronic obstructive pulmonary disease with (acute) lower respiratory infection (principal); J18.9 Pneumonia, unspecified organism; I12.0 Hypertensive chronic kidney disease with stage 5 chronic kidney disease or end stage renal disease; E11.22 Type 2 diabetes mellitus with diabetic chronic kidney disease; N18.6 End stage renal disease; I25.10 Atherosclerotic heart disease of native coronary artery without angina pectoris; E78.00 Pure hypercholesterolemia, unspecified; E66.9 Obesity, unspecified; Z99.2 Dependence on renal dialysis; Z79.82 Long term (current) use of aspirin; Z79.84 Long term (current) use of oral hypoglycemic drugs; Z79.899 Other long term (current) drug therapy
CPT/HCPCS: 36415; 71046; 80053; 83605; 85025; 87040; 99284; 99285-25